=== PATIENT | female | born 1995 | race Caucasian/White ===

== ENCOUNTER 2019-04-11 07:28 | Day surgery (SDC) | payer BC ==
[2019-04-11] MEDS ORDERED: LIDOCAINE 1% W/EPI 1:100,000 MDV 20 ML VIAL ONE (07:31)
[2019-04-11] MEDS ORDERED: Ringers Lactate 1,000 ML IV ONE (07:45)
[2019-04-11] MEDS ORDERED: CEFAZOLIN/SWI 2gm 0 GM/0 ML SYR ONE (07:46)
[2019-04-11] MEDS ORDERED: MIDAZOLAM HCL 2 MG/2 ML INJ ONE (08:06)
[2019-04-11 08:17] VITALS: BP 107/68; TEMP 97.7; O2SAT 99
[2019-04-11 08:21] LABS: Specific Gravity 1.025 (1.005-1.030)
[2019-04-11] MEDS ORDERED: LIDOCAINE 2% MPF 5 ML VIAL ONE (08:22)
[2019-04-11] MEDS ORDERED: PROPOFOL 200 MG/20 ML VIAL IV ONE (08:22)
[2019-04-11] MEDS ORDERED: FENTANYL CITR 100 MCG/2 ML ONE (08:22)
[2019-04-11] MEDS ORDERED: ONDANSETRON 4 MG/2 ML VIAL ONE (08:24)
--- NOTE | 2019-04-11 21:26 | OP ---
Surgeon: Teresa Mao MD Preprocedure Diagnoses: 1.Patient here for left Bartholin gland I and D and marsupialization. Patient found to be , so this procedure not performed. 2.Positive test, first trimester . 3.Nexplanon in place, needs removal. Postprocedure Diagnoses: 1.Patient here for left Bartholin gland I and D and marsupialization. Patient found to be , so this procedure not performed. 2.Positive test, first trimester . 3.Nexplanon in place, needs removal. 4.Nexplanon removal. Procedure Performed: At the bedside, 1% lidocaine mixed with 1:100, 000 epinephrine, 3 cc was inject ed at the site of the Nexplanon underneath. The implant was present in the medial left arm, prepped with ChloraPrep was done at the bedside drape. Once a 5 mm transverse cut at the distal end of the i mplant with an 11 blade, the tip of the implant was well palpated and the implant was teased out and excised with the tip of the scalpel. Once the implant was visualized, it was grasped with hemostat a nd removed. Steri-Strips were placed after hemostasis was secured with pressure. Bandage with a 4 x 4 and a large Band-Aid was done. Patient was given instructions on local care of the incision. Estimated Blood Loss: Minimal. Complications: None. Condition: Stable. She will be discharged home today. From her Bartholin gland abscess same point, patient was examined at the bedside. It was much smalle r, may be about a centimeter. This is not amenable to drainage and therefore plan was to continue he r antibiotics and follow up with an plate take out worker in the director long term care. The [facility] a [facility] She had no further followup. She was the old danielle ent, however, recent patient for us in the office, showed up for the Bartholin gland abscess problem later on the following day. She had a Nexplanon placed in her arm. At the time of the Nexplanon zee cement, her urine test was negative. In the office, it was confirmed to be negative and pa stuart was just on her period at this time. After the implant placement, she came back a week later f or followup on her Bartholin gland, which was being treated with antibiotics. This had increased in size and therefore plan was to drain it as this is the second episode of the same gland swelling that was drained at bedside few years ago, so she was consented for the marsupialization and brought here , but today due to the above problem and due to the fact that this has gotten too much smaller size, it was not amenable to marsupialization. She is being discharged home today. She will follow up shaniqua choi in my office for an HCG level in 2 days and we will see if the level is going to double, consist ent with a normal than she will be. Her care will be transferred to an plate take out worker. ARGELIA Voice ID: [id number] Report ID: [id number]
== END 2019-04-11 12:00 | disposition home or self-care (01) ==
LOC: OR 07:28
PROVIDERS: ATTEND Obstetrics & Gynecology
PROC: 0JPV0HZ Removal of Contraceptive Device from Upper Extremity Subcutaneous Tissue and Fascia, Open Approach (ICD-10-PCS; principal; 2019-04-11)
DX: N75.0 Cyst of Bartholin's gland (principal); Z30.46 Encounter for surveillance of implantable subdermal contraceptive; Z33.1 Pregnant state, incidental; Z53.8 Procedure and treatment not carried out for other reasons; F17.200 Nicotine dependence, unspecified, uncomplicated; F41.9 Anxiety disorder, unspecified; F31.9 Bipolar disorder, unspecified
CPT/HCPCS: 36415; 81025; 84702; 84703; J0690; J2250; J2405; J2704; J3010

== ENCOUNTER 2020-03-13 18:24 | Emergency (ER) | payer BC ==
--- OUTSIDE RECORDS SUMMARY | 2020-03-13 18:26 | XMS REPORT | Continuity of Care Document ---
:1995 Author Organization [facility] t Address [address] [place] [address] Care Team Providers Name Role Phone DR Angus SANTIAGO Attending Clinician Unavailable DR Angus SANTIAGO Admitting Clinician Unavailable Problems This patient has no known problems. Allergies, Adverse Reactions, Alerts This patient has no known allergies or adverse reactions. Medications This patient has no known medications. Procedures This patient has no known procedures. Encounters Start End Encounter Admission Attending Care Care Encounter Source Date/Time Date/Time Type Type Clinicians Facility Department ID 2019-03-11 2019-03-11 Emergency [facility] [id number] 16:01:00 18:50:00 [facility] Results Test Description Test Time Test Comments Results Result Comments Source SERUM MONOCLONAL 2019-03-11 18:18:00 Test Item Value Reference Range Interpretation Comme nts PREG SRM (test code = PGS) NEGATIVE NEGATIVE CT HEAD W/O [id number] 17:36:29LOCATION: H43 EXAM: CT HEAD WO CONTRAST, CT facial bones without contrastHISTORY: Status post assaultTECHNIQUE: Axial imaging the brain from skull base to the vertex without theadministration of intravenous contrast. Thin section axial imaging through thefacial bones without intravenous contrast administration. Sagittal and coronalreconstruction. CT scan performed using appropriate/available doseoptimization/reduction techniques. DLP 1630 mGy*cmCOMPARISON: NoneFINDINGS:CT brain:A prominent right posterior occipital scalp hematoma is present at the vertex.There is no evidence of an acute intracranial hemorrhage or extra-axialcollection. The ventricles are midline in position and normal in size.The basilar cisternsare patent and symmetric.There is no confluent low-density to indicate an acute territorial infarct. Thedensity of the major dural sinuses is within normal limits.The orbits and their contents are unremarkable. The calvarium is intact. CT facial bones: There is partial opacification of the bilateral maxillary sinus including thepresence of air-fluid levels consistent with acute sinus disease. The paranasalsinuses and the mastoid air cells are otherwise clear.No acute fracture is identified. The maxillary sinus sterling are intact. Theorbit sterling and contents intact. The mandible isintact. The temporomandibularjoint is preserved bilaterally. The airway is preserved. The retropharyngeal soft tissues are within normallimits.Prominent, symmetric lymph nodes are noted in the bilateral neck, measuring upto 12 x 14 mm in the bilateral level 2 station.Parotid and submandibular glands are symmetric and unremarkable in appearance. No evidence of acute hemorrhage or abnormal mass effect in the visualizedportion of the brain. IMPRESSION:Prominent scalp hematoma at the right posterior vertex.No evidence of acute intracranial pathology.Partial opacification of the bilateral maxillary sinus consistent with acutesinus disease. No evidence of an acute facial bone fracture.Prominent, symmetric lymph nodes in the bilateral neck. Correlate for an acuteinfectious or inflammatory process.CT FACIAL W/O CONTRAST 2019-03-11 17:36:29LOCATION: H43 EXAM: CT HEAD WO CONTRAST, CT facial bones without contrastHISTORY: Status post assaultTECHNIQUE: Axial imaging the brain from skull base to the vertex without theadministration of intravenous contrast. Thin section axial imaging through thefacial bones without intravenous contrast administration. Sagittal and coronalreconstruction. CT scan performed using appropriate/available doseoptimization/reduction techniques. DLP 1630 mGy*cmCOMPARISON: NoneFINDINGS:CT brain:A prominent right posterior occipital scalp hematoma is present at the vertex.There is no evidence of an acute intracranial hemorrhage or extra-axialcollection. The ventricles are midline in position and normal in size.The basilar cisternsare patent and symmetric.There is no confluent low-density to indicate an acute territorial infarct. Thedensity of the major dural sinuses is within normal limits.The orbits and their contents are unremarkable. The calvarium is intact. CT facial bones: There is partial opacification of the bilateral maxillary sinus including thepresence of air-fluid levels consistent with acute sinus disease. The paranasalsinuses and the mastoid air cells are otherwise clear.No acute fracture is identified. The maxillary sinus sterling are intact. Theorbit sterling and contents intact. The mandible isintact. The temporomandibularjoint is preserved bilaterally. The airway is preserved. The retropharyngeal soft tissues are within normallimits.Prominent, symmetric lymph nodes are noted in the bilateral neck, measuring upto 12 x 14 mm in the bilateral level 2 station.Parotid and submandibular glands are symmetric and unremarkable in appearance. No evidence of acute hemorrhage or abnormal mass effect in the visualizedportion of the brain. IMPRESSION:Prominent scalp hematoma at the right posterior vertex.No evidence of acute intracranial pathology.Partial opacification of the bilateral maxillary sinus consistent with acutesinus disease. No evidence of an acute facial bone fracture.Prominent, symmetric lymph nodes in the bilateral neck. Correlate for an acuteinfectious or inflammatory process.XR RIBS LEFT UNIL 3VWS W/PA [id number] 17:28:27EXAM: Right rib series, 3 views; and chest and left rib series, 4 viewsDictation location: A1 INDICATION: Rib painCOMPARISON: None.DISCUSSION:Right ribs: Frontal and oblique views of the right ribs are submitted. Noconsolidation, pleural effusion, or pneumothorax is seen. No displaced ribfracture or focal rib lesion is seen.Chest/left ribs: A frontal view of the chest and multiple views of the leftribs are submitted. No consolidation, pleural effusion, or pneumothorax isseen. The cardiomediastinal silhouette is within normal limits. No displacedrib fracture or focal rib lesion is seen.IMPRESSION: No evidence of rib fracture or other acute abnormality.XR RIBS RIGHT UNIL 3VW W/PA [id number] 17:28:27EXAM: Right rib series, 3 views; and chest and left rib series, 4 viewsDictation location: A1 INDICATION: Rib painCOMPARISON: None.DISCUSSION:Right ribs: Frontal and oblique views of the right ribs aresubmitted. Noconsolidation, pleural effusion, or pneumothorax is seen. No displaced ribfracture or focal rib lesion is seen.Chest/left ribs: A frontal view of the chest and multiple views of the leftribs are submitted. No consolidation, pleural effusion, or pneumothorax isseen. The cardiomediastinal silhouette is within normal limits. No displacedrib fracture or focal rib lesion is seen.
[2020-03-13] MEDS ORDERED: LIDOCAINE 1% MPF 5 ML VIAL ONE (20:09)
--- NOTE | 2020-03-13 20:35 | ER ---
Nurse's Notes [facility] Name: Caridad Phillip Age: 24 yrs Sex: Female : 1995 Arrival Date: 03/13/2020 Time: 18:27 Bed 20 Private MD: Matt Castrejon E Diagnosis: Abscess of Bartholin's gland Presentation: 03/13 18:30 Chief complaint: Patient states: Here for Bartholin's Cyst. I have this every 3 years. ca1 Took abx but it still there. Reports pain at genital area, worse with walking. Coronavirus screen: Patient denies a cough. Patient denies shortness of breath or difficulty breathing. Patient denies measured and/or subjective temperature greater than 100.4F prior to today's visit. Patient denies travel on a cruise ship or to a country the [facility] currently lists as an affected area. Patient denies contact with known and/or suspected case of COVID-19. Patient was placed back in the lobby due to no available rooms at this time. Patient was instructed to always wear their mask and to isolate themselves as much as possible from others in the lobby. Ebola Screen: Patient negative for fever greater than or equal to 101.5 degrees Fahrenheit, and additional compatible Ebola Virus Disease symptoms Patient denies exposure to infectious person. Patient denies travel to an Ebola-affected area in the 21 days before illness onset. No symptoms or risks identified at this time. Initial Sepsis Screen: Does the patient meet any 2 criteria? No. Patient's initial sepsis screen is negative. Does the patient have a suspected source of infection? No. Patient's initial sepsis screen is negative. Risk Assessment: Do you want to hurt yourself or someone else? Patient reports no desire to harm self or others. Onset of symptoms was March 13, 2020. 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 - Social history:: Smoking status: Patient reports the use of cigarette tobacco products, smokes one-half pack cigarettes per day. Screenin:06 Abuse screen: Denies threats or abuse. Nutritional screening: No deficits noted. ea Tuberculosis screening: No symptoms or risk factors identified. Fall Risk None identified. Assessment: 19:04 General: Appears in no apparent distress. Behavior is appropriate for age. Pain: ea Complains of pain in groin. Neuro: Level of Consciousness is awake, alert, obeys commands, Oriented to person, place, time. Respiratory: Airway is patent Respiratory effort is even, unlabored, Respiratory pattern is regular, symmetrical. : Swelling noted on labia. 21:02 Reassessment: Patient states feeling better. mt2 Vital Signs: 18:30 BP 128 / 65; Pulse 89; Resp 17 S; Temp 98(TE); Pulse Ox 100% on R/A; Weight 68.04 kg ca1 (R); Height 5 ft. 5 in. (165.10 cm) (R); 21:02 BP 129 / 63; Pulse 79; Resp 16; Pulse Ox 99% ; Pain 0/10; mt2 21:04 Pain 0/10; mt2 21:04 Pain 0/10; mt2 21:04 Pain 0/10; mt2 21:05 Pain 0/10; mt2 18:30 Body Mass Index 24.96 (68.04 kg, 165.10 cm) ca1 ED Course: 18:27 Patient arrived in ED. ag5 18:30 Matt Castrejon MD is Private Physician. ag5 18:33 Triage completed. ca1 18:34 Arm band placed on right wrist. ca1 18:56 Mulugeta Johnston PA is PHCP. jr8 18:56 Butch Perez MD is Attending Physician. jr8 19:04 Ayla Yañez, DANILO is Primary Nurse. ea 19:06 Patient has correct armband on for positive identification. Bed in low position. Call ea light in reach. Side rails up X 1. 20:25 Matt Castrejon MD is Referral Physician. jr8 21:01 No apparent distress. mt2 21:01 Assist provider with I \T\ D: of an abscess on perineal Performed by Mulugeta ZHAO. mt2 Patient did not have IV access during this emergency room visit. Administered Medications: 20:04 Drug: Lidocaine (1 %) 5 mg Route: Infiltration; mt2 21:04 Follow up: Pain 0/10 Adult mt2 20:36 Drug: morphine 4 mg Route: IM; Site: right deltoid; mt2 21:04 Follow up: Pain 0/10 Adult mt2 21:05 Follow up: Pain 0/10 Adult mt2 20:37 Drug: Zofran (Ondansetron) 4 mg Route: PO; mt2 21:04 Follow up: Pain 0/10 Adult mt2 Outcome: 20:34 Discharge ordered by MD. philip 21:01 Discharged to home ambulatory. mt2 21:01 Condition: good 21:01 Discharge instructions given to patient, Instructed on discharge instructions, follow up and referral plans. medication usage, Demonstrated understanding of instructions, follow-up care, medications, Prescriptions given X 1. 21:05 Patient left the ED. mt2 Signatures: Mulugeta Johnston PA PA jrAyla Dimas RN RN ea Acob, Cheryl, RN RN ca1 [place], Ajare [facility] Selena Harrell RN RN mt2
--- NOTE | 2020-03-13 20:35 | EDPHYS ---
Physician Documentation [facility] Name: Caridad Phillip Age: 24 yrs Sex: Female : 1995 Arrival Date: 03/13/2020 Time: 18:27 Bed 20 Private MD: Matt Castrejon E ED Physician Butch Perez HPI: 03/13 20:42 This 24 yrs old Female presents to ER via Ambulatory with complaints of jr8 Bartholin's Cyst. 20:42 Onset: The symptoms/episode began/occurred gradually, 1 week(s) ago, and became worse. jr8 Modifying factors: The symptoms are alleviated by nothing, the symptoms are aggravated by movement. Associated signs and symptoms: The patient has no apparent associated signs or symptoms. Severity of symptoms: At their worst the symptoms were moderate, in the emergency department the symptoms are unchanged. The patient has experienced similar episodes in the past, a few times. The patient has been recently seen by a physician:. Started on Abx and almost finished them. Has improved pain but still swollen and not going away. Has had this several times in past. All requiring I\T\D. 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 - Social history:: Smoking status: Patient reports the use of cigarette tobacco products, smokes one-half pack cigarettes per day. ROS: 20:42 Eyes: Negative for injury, pain, redness, and discharge, ENT: Negative for injury, jr8 pain, and discharge, Neck: Negative for injury, pain, and swelling, Cardiovascular: Negative for chest pain, palpitations, and edema, Respiratory: Negative for shortness of breath, cough, wheezing, and pleuritic chest pain, Abdomen/GI: Negative for abdominal pain, nausea, vomiting, diarrhea, and constipation, Back: Negative for injury and pain, MS/Extremity: Negative for injury and deformity, Skin: Negative for injury, rash, and discoloration, Neuro: Negative for headache, weakness, numbness, tingling, and seizure. Exam: 20:42 Cardiovascular: Regular rate and rhythm with a normal S1 and S2. No gallops, murmurs, jr8 or rubs. Normal PMI, no JVD. No pulse deficits. Respiratory: Lungs have equal breath sounds bilaterally, clear to auscultation and percussion. No rales, rhonchi or wheezes noted. No increased work of breathing, no retractions or nasal flaring. Skin: Warm, dry with normal turgor. Normal color with no rashes, no lesions, and no evidence of cellulitis. MS/ Extremity: Pulses equal, no cyanosis. Neurovascular intact. Full, normal range of motion. Neuro: Awake and alert, GCS 15, oriented to person, place, time, and situation. Cranial nerves II-XII grossly intact. Motor strength 5/5 in all extremities. Sensory grossly intact. Cerebellar exam normal. Normal gait. 20:42 : Pelvic Exam: External exam: Bartholin's cyst present, erythema is noted, the nurse was present for the exam. Vital Signs: 18:30 BP 128 / 65; Pulse 89; Resp 17 S; Temp 98(TE); Pulse Ox 100% on R/A; Weight 68.04 kg ca1 (R); Height 5 ft. 5 in. (165.10 cm) (R); 21:02 BP 129 / 63; Pulse 79; Resp 16; Pulse Ox 99% ; Pain 0/10; mt2 21:04 Pain 0/10; mt2 21:04 Pain 0/10; mt2 21:04 Pain 0/10; mt2 21:05 Pain 0/10; mt2 18:30 Body Mass Index 24.96 (68.04 kg, 165.10 cm) ca1 Procedures: 20:23 I \T\ D: Incision and drainage was performed for an abscess of the left Bartholin's jr8 gland. Prepped with Betadine, Anesthetized with 5 ml's 1% Lidocaine. Incised with #11 blade. Drained moderate amount purulent fluid. serosanguinous fluid. bloody fluid. Loculations removed. Abscess cavity explored. Packed with word catheter . the patient tolerated the procedure well. MDM: 18:57 Patient medically screened. jr8 20:23 Data reviewed: vital signs, nurses notes, and as a result, I will discharge patient. jr8 Data interpreted: Pulse oximetry: on room air is 100 %. Interpretation: normal. Counseling: I had a detailed discussion with the patient and/or guardian regarding: the historical points, exam findings, and any diagnostic results supporting the discharge/admit diagnosis, the need for outpatient follow up, an OB/Gyne specialist, to return to the emergency department if symptoms worsen or persist or if there are any questions or concerns that arise at home. 03/13 19:43 Order name: I\T\D Setup; Complete Time: 19:59 jr8 03/13 19:43 Order name: Misc. Order: word catheter; Complete Time: 20:04 jr8 Administered Medications: 20:04 Drug: Lidocaine (1 %) 5 mg Route: Infiltration; mt2 21:04 Follow up: Pain 0/10 Adult mt2 20:36 Drug: morphine 4 mg Route: IM; Site: right deltoid; mt2 21:04 Follow up: Pain 0/10 Adult mt2 21:05 Follow up: Pain 0/10 Adult mt2 20:37 Drug: Zofran (Ondansetron) 4 mg Route: PO; mt2 21:04 Follow up: Pain 0/10 Adult mt2 Disposition: 03/13/20 20:34 Discharged to Home. Impression: Abscess of Bartholin's gland. - Condition is Stable. - Discharge Instructions: Bartholin Cyst or Abscess, Incision and Drainage. - Prescriptions for Tylenol- Codeine #3 300-30 mg Oral Tablet - take 2 tablets by ORAL route every 6 hours As needed; 20 tablet. - Medication Reconciliation Form, Thank You Letter, Antibiotic Education, Prescription Opioid Use form. - Follow up: Matt Castrejon MD; When: 1 week; Reason: Wound Recheck, Recheck today's complaints, Continuance of care, Re-evaluation by your physician. - Problem is new. - Symptoms have improved. Addendum: 03/17/2020 07:21 Co-signature as Attending Physician, Butch Perze MD. r n Signatures: Butch Perez MD MD rn Roszak, Josh, PA PA jr8 Lila Whipple RN RN ca1 Selena Harrell RN RN mt2 Corrections: (The following items were deleted from the chart) 03/13 21:05 20:34 03/13/2020 20:34 Discharged to Home. Impression: Abscess of Bartholin's gland. mt2 Condition is Stable. Forms are Medication Reconciliation Form, Thank You Letter, Antibiotic Education, Prescription Opioid Use. Follow up: Matt Castrejon; When: 1 week; Reason: Wound Recheck, Recheck today's complaints, Continuance of care, Re-evaluation by your physician. Problem is new. Symptoms have improved. jr8
[2020-03-13] MEDS ORDERED: ONDANSETRON 4 MG (ODT) TAB ONE (20:42)
[2020-03-13] MEDS ORDERED: MORPHINE 4 MG/ML SYR ONE (20:42)
== END 2020-03-13 21:05 | disposition home or self-care (01) ==
LOC: ER 18:24
PROC: 0U9L0ZZ Drainage of Vestibular Gland, Open Approach (ICD-10-PCS; principal; 2020-03-13)
DX: N75.0 Cyst of Bartholin's gland (principal); F41.9 Anxiety disorder, unspecified; F17.210 Nicotine dependence, cigarettes, uncomplicated
CPT/HCPCS: 96372; 99283

== ENCOUNTER 2020-04-03 00:45 | Emergency (ER) | payer BC ==
--- OUTSIDE RECORDS SUMMARY | 2020-04-03 00:47 | XMS REPORT | Continuity of Care Document ---
:1995 Author Organization [facility] t Address [address] [place] [address] Care Team Providers Name Role Phone DR [...] Department ID 2019-03-11 2019-03-11 Emergency E [facility]ACK [facility] [id number] 16:01:00 18:50:00 [facility] Results Test Description Test Time Test Comments Results Result Comments Source SERUM MONOCLONAL 2019-03-11 18:18:00 Test Item Value Reference Range Interpretation Comme nts PREG SRM (test code = PGS) NEGATIVE NEGATIVE CT HEAD W/O [id number] 17:36:29LOCATION: H43 EXAM: CT HEAD WO CONTRAST, [...] inflammatory process.XR RIBS LEFT UNIL 3VWS W/PA [id number] 17:28:27EXAM: Right rib series, 3 views; and [...] acute abnormality.XR RIBS RIGHT UNIL 3VW W/PA [id number] 17:28:27EXAM: Right rib series, 3 views; and [...]
[2020-04-03] MEDS ORDERED: LIDOCAINE 1% 20 ML MDV ONE (02:07)
[2020-04-03] MEDS ORDERED: BUPIVACAINE 0.5% PF 10 ML VIAL ONE (02:07)
[2020-04-03] MEDS ORDERED: FENTANYL CITR 100 MCG/2 ML ONE (02:18)
--- NOTE | 2020-04-03 03:02 | EDPHYS ---
Physician Documentation [facility] Name: Caridad Phillip Age: 24 yrs Sex: Female : 1995 Arrival Date: 04/03/2020 Time: 00:49 Bed 7 Private MD: Matt Castrejon E ED Physician Efrain Villareal HPI: 04/03 02:50 This 24 yrs old Female presents to ER via Ambulatory with complaints of cp Bartholin's Cyst. 02:50 The patient presents with possible Bartholin cyst. cp 02:50 Onset: The symptoms/episode began/occurred last month. Associated signs and symptoms: cp Pertinent negatives: dysuria, fever. Patient reports having I\T\D of Bartholin cyst last month in ED, but the catheter fell out the next day after the procedure. Patient reports finishing course of doxycycline. 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 - Social history:: Smoking status: Patient reports the use of cigarette tobacco products, smokes one-half pack cigarettes per day. ROS: 02:55 Constitutional: Negative for body aches, chills, fever, poor PO intake. cp 02:55 Respiratory: Negative for cough, shortness of breath, wheezing. cp 02:55 Abdomen/GI: Negative for abdominal pain, nausea, vomiting, and diarrhea. 02:55 : Positive for genital swelling and pain, Negative for urinary symptoms, vaginal bleeding, vaginal discharge. 02:55 Skin: Negative for rash. 02:55 All other systems are negative. Exam: 02:58 Constitutional: The patient appears in no acute distress, alert, awake, non-toxic, well cp developed, well nourished. 02:58 Abdomen/GI: Inspection: abdomen appears normal, Palpation: abdomen is soft and cp non-tender, in all quadrants. 02:58 : Pelvic Exam: External exam: no appreciated Bartholin's cyst, no lesions, mild swelling and erythema of left labia majora, scant bloody drainage from previous incision of left labia majora, no purulent drainage expressed. Vital Signs: 01:43 BP 109 / 80; Pulse 82; Resp 18; Temp 98.1(O); Pulse Ox 99% on R/A; Weight 68.04 kg (R); lp1 Height 5 ft. 5 in. (165.10 cm); Pain 10/10; 01:43 Body Mass Index 24.96 (68.04 kg, 165.10 cm) lp1 MDM: 01:47 Patient medically screened. cp 03:00 Differential diagnosis: pelvic inflammatory disease, urinary tract infection, abscess, cp cellulitis. 03:01 Data reviewed: vital signs, nurses notes, and as a result, I will discharge patient. cp 03:01 Counseling: I had a detailed discussion with the patient and/or guardian regarding: the cp historical points, exam findings, and any diagnostic results supporting the discharge/admit diagnosis, the need for outpatient follow up, an OB/Gyne specialist, to return to the emergency department if symptoms worsen or persist or if there are any questions or concerns that arise at home. Response to treatment: the patient's symptoms have mildly improved after treatment, and as a result, I will discharge patient. 08 01:45 Order name: Pelvic Exam Setup; Complete Time: 02:04 cp 08 01:58 Order name: IV; Complete Time: 02:16 cp Administered Medications: 02:16 Drug: fentaNYL (PF) 25 mcg {Note: RASS 0.} Route: IVP; Site: right antecubital; lp1 03:00 Follow up: Response: No adverse reaction lp1 Disposition: 03:15 Chart complete. cp 04:29 Co-signature as Attending Physician, Efrain Villareal MD. mh7 Disposition: 04/03/20 03:02 Discharged to Home. Impression: Cellulitis and acute lymphangitis of other sites - left labia. - Condition is Stable. - Discharge Instructions: Cellulitis, Adult. - Prescriptions for Clindamycin HCl 300 mg Oral Capsule - take 1 capsule by ORAL route every 6 hours for 10 days; 40 capsule. Tylenol- Codeine #3 300-30 mg Oral Tablet - take 2 tablets by ORAL route every 8 hours As needed; 20 tablet. - Medication Reconciliation Form, Thank You Letter, Antibiotic Education, Prescription Opioid Use form. - Follow up: Teresa Mao MD; When: 2 - 3 days; Reason: Worsening of condition. - Problem is an ongoing problem. - Symptoms have improved. Signatures: Yue Stout RN RN lp1 Elkin Wise PA PA cp Holmes, Maurice, MD MD mh7 Corrections: (The following items were deleted from the chart) 03:13 03:02 04/03/2020 03:02 Discharged to Home. Impression: Cellulitis and acute lp1 lymphangitis of other sites - left labia. Condition is Stable. Forms are Medication Reconciliation Form, Thank You Letter, Antibiotic Education, Prescription Opioid Use. Follow up: Teresa Mao; When: 2 - 3 days; Reason: Worsening of condition. Problem is an ongoing problem. Symptoms have improved. cp
--- NOTE | 2020-04-03 03:02 | ER ---
Nurse's Notes [facility] Name: Caridad Phillip Age: 24 yrs Sex: Female : 1995 Arrival Date: 04/03/2020 Time: 00:49 Bed 7 Private MD: Matt Castrejon E Diagnosis: Cellulitis and acute lymphangitis of other sites-left labia Presentation: 04/03 01:43 Chief complaint: Patient states: Here a couple weeks ago for Bartholin's cyst to left lp1 side; states catheter came out and would like to see if provider can squeeze out drainage to site for relief. Coronavirus screen: Client denies travel out of the [place] in the last 14 days. At this time, the client does not indicate any symptoms associated with coronavirus-19. Ebola Screen: No symptoms or risks identified at this time. Initial Sepsis Screen: Does the patient meet any 2 criteria? No. Patient's initial sepsis screen is negative. Does the patient have a suspected source of infection? No. Patient's initial sepsis screen is negative. Risk Assessment: Do you want to hurt yourself or someone else? Patient reports no desire to harm self or others. Onset of symptoms was April 03, 2020. 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 - Social history:: Smoking status: Patient reports the use of cigarette tobacco products, smokes one-half pack cigarettes per day. Screenin:45 Abuse screen: Denies threats or abuse. Denies injuries from another. Nutritional lp1 screening: No deficits noted. Tuberculosis screening: No symptoms or risk factors identified. Fall Risk None identified. Assessment: 02:15 General: Appears in no apparent distress. Behavior is calm, cooperative, appropriate lp1 for age. Pain: Complains of pain in left labia majora and left labia minora Pain currently is 10 out of 10 on a pain scale. Neuro: No deficits noted. Cardiovascular: No deficits noted. Respiratory: No deficits noted. GI: No deficits noted. : No signs and/or symptoms were reported regarding the genitourinary system. EENT: No signs and/or symptoms were reported regarding the EENT system. Derm: Abscess located on left labia majora and left labia minora Reports pain. Musculoskeletal: No deficits noted. Vital Signs: 01:43 BP 109 / 80; Pulse 82; Resp 18; Temp 98.1(O); Pulse Ox 99% on R/A; Weight 68.04 kg (R); lp1 Height 5 ft. 5 in. (165.10 cm); Pain 10/10; 01:43 Body Mass Index 24.96 (68.04 kg, 165.10 cm) lp1 ED Course: 00:49 Patient arrived in ED. es 00:49 Matt Castrejon MD is Private Physician. es 01:16 Patient's name was called from ER [facility]. No response. bb 01:43 Yue Stout, RN is Primary Nurse. lp1 01:45 Triage completed. lp1 01:45 Elkin Wise PA is PHCP. cp 01:45 Efrain Villareal MD is Attending Physician. cp 01:46 Patient has correct armband on for positive identification. lp1 01:46 Arm band placed on. lp1 02:17 Inserted saline lock: 22 gauge in right antecubital area, using aseptic technique. lp1 02:53 Assist provider with pelvic exam: Set up pelvic tray. Performed by Elkin ZHAO. lp1 03:00 Teresa Mao MD is Referral Physician. cp 03:13 IV discontinued, No redness/swelling at site. Pressure dressing applied. lp1 Administered Medications: 02:16 Drug: fentaNYL (PF) 25 mcg {Note: RASS 0.} Route: IVP; Site: right antecubital; lp1 03:00 Follow up: Response: No adverse reaction lp1 Outcome: 03:02 Discharge ordered by . cp 03:13 Discharged to home ambulatory. lp1 03:13 Condition: good 03:13 Discharge instructions given to patient, Instructed on discharge instructions, follow up and referral plans. wound care, Demonstrated understanding of instructions, follow-up care, medications, Prescriptions given X 2. 03:13 Patient left the ED. lp1 Signatures: Ashely Roche Brenda, RN RN bb Yue Stout RN RN lp1 Elkin Wise PA PA cp
[2020-04-03 03:21] VITALS: BP 109/80; TEMP 98.1; O2SAT 99
== END 2020-04-03 03:13 | disposition home or self-care (01) ==
LOC: ER 00:45
DX: N76.2 Acute vulvitis (principal); F17.210 Nicotine dependence, cigarettes, uncomplicated
CPT/HCPCS: 96374; 99284; J3010

== ENCOUNTER 2020-07-07 19:37 | Emergency (ER) | payer BC ==
--- OUTSIDE RECORDS SUMMARY | 2020-07-07 19:38 | XMS REPORT | Continuity of Care Document ---
:1995 Author Organization [facility] t Address [address] [place] [address] Care Team Providers Name Role Phone DR [...] ID 2019-03-11 2019-03-11 Emergency E JACK Bola [facility] [id number] 16:01:00 18:50:00 [facility] Results Test Description Test Time Test Comments Results Result Comments Source SERUM MONOCLONAL 2019-03-11 18:18:00 Test Item Value Reference Range Interpretation Comme nts PREG SRM (test code = PGS) NEGATIVE NEGATIVE CT HEAD W/O [id number] 17:36:29LOCATION: H43 EXAM: CT HEAD WO CONTRAST, [...] inflammatory process.XR RIBS LEFT UNIL 3VWS W/PA [id number] 17:28:27EXAM: Right rib series, 3 views; and [...] acute abnormality.XR RIBS RIGHT UNIL 3VW W/PA [id number] 17:28:27EXAM: Right rib series, 3 views; and [...]
[2020-07-07] MEDS ORDERED: MORPHINE 4 MG/ML SYR ONE (21:03)
[2020-07-07] MEDS ORDERED: ONDANSETRON 4 MG (ODT) TAB ONE (21:04)
[2020-07-07] MEDS ORDERED: HYDROCORTISONE ACETATE 25MG SUPP PR ONE (21:06)
--- NOTE | 2020-07-07 21:07 | ER ---
Nurse's Notes [facility] Name: Caridad Phillip Age: 25 yrs Sex: Female : 1995 Arrival Date: 07/07/2020 Time: 19:42 Bed 16 Private MD: Diagnosis: Painful external hemorrhoids Presentation: 07/07 19:46 Chief complaint: Patient states: I have hemorrhoids for a bout a week now, it's pretty ca1 big and I am in a lot of pain. It bleeds here and there. But I am not even sure if it is a hemorrhoid cause I am also prone to a Bartholin's cyst, I get it like every 3 years. But it's not leaking pus nor foul-smelling. Denies fever. Coronavirus screen: Client denies travel out of the [place] in the last 14 days. At this time, the client does not indicate any symptoms associated with coronavirus-19. Ebola Screen: Patient negative for fever greater than or equal to 101.5 degrees Fahrenheit, and additional compatible Ebola Virus Disease symptoms Patient denies exposure to infectious person. Patient denies travel to an Ebola-affected area in the 21 days before illness onset. No symptoms or risks identified at this time. Initial Sepsis Screen: Does the patient meet any 2 criteria? No. Patient's initial sepsis screen is negative. Does the patient have a suspected source of infection? No. Patient's initial sepsis screen is negative. Risk Assessment: Do you want to hurt yourself or someone else? Patient reports no desire to harm self or others. Onset of symptoms was July 07, 2020. 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 - Social history:: Smoking status: Patient reports the use of cigarette tobacco products, denies chronic smoking, but will smoke occasionally. Screenin:21 Abuse screen: Denies threats or abuse. Nutritional screening: No deficits noted. jd3 Tuberculosis screening: No symptoms or risk factors identified. Fall Risk Ambulatory Aid- None/Bed Rest/Nurse Assist (0 pts). Gait- Normal/Bed Rest/Wheelchair (0 pts) Mental Status- Oriented to own ability (0 pts). Total Fisher Fall Scale indicates No Risk (0-24 pts). Assessment: 21:20 General: Appears in no apparent distress. uncomfortable, Behavior is calm, cooperative, jd3 appropriate for age. Pain: Complains of pain in buttocks Quality of pain is described as aching. Neuro: Level of Consciousness is awake, alert, obeys commands, Oriented to person, place, time, situation. Cardiovascular: Denies Capillary refill < 3 seconds Patient's skin is warm and dry. Respiratory: Airway is patent Respiratory effort is even, unlabored, Respiratory pattern is regular, symmetrical. GI: No signs and/or symptoms were reported involving the gastrointestinal system. : No signs and/or symptoms were reported regarding the genitourinary system. EENT: No signs and/or symptoms were reported regarding the EENT system. Derm: Skin is intact, Skin is dry, Skin is normal, Skin temperature is warm. Musculoskeletal: Circulation, motion, and sensation intact. Range of motion: intact in all extremities. Vital Signs: 19:46 BP 127 / 79; Pulse 58; Resp 16 S; Temp 97.4(TE); Pulse Ox 100% on R/A; Weight 56.7 kg ca1 (R); Height 5 ft. 5 in. (165.10 cm) (R); Pain 10/10; 19:46 Body Mass Index 20.80 (56.70 kg, 165.10 cm) ca1 ED Course: 19:42 Patient arrived in ED. bp1 19:49 Triage completed. ca1 19:49 Arm band placed on right wrist. ca1 20:38 Enrique Allison MD is Attending Physician. pkl 20:48 Harrison Rivers RN is Primary Nurse. jd3 21:05 Zac Moreland MD is Referral Physician. pkl 21:21 Patient has correct armband on for positive identification. Bed in low position. Call jd3 light in reach. Side rails up X 1. Adult w/ patient. Pulse ox on. NIBP on. 21:21 No provider procedures requiring assistance completed. Patient did not have IV access jd3 during this emergency room visit. Administered Medications: 20:56 Drug: Zofran (Ondansetron) 4 mg Route: PO; jd3 21:23 Follow up: Response: No adverse reaction jd3 20:57 Not Given (Other Intervention Used): morphine 4 mg IVP once; RASS on ADMIN: Combtv4, jd3 Very Agttd3, Agttd2, Rstlss1, AlertClm0, Drwsy-1, Lt Sdtn-2, Mod Sdtn-3, Dp Sdtn-4, UnArsble-5 20:57 Drug: morphine 4 mg Route: IM; Site: left deltoid; jd3 21:23 Follow up: Response: No adverse reaction; RASS: Alert and Calm (0) jd3 21:22 Drug: Anusol-HC 25 mg 25 mg Route: RI; jd3 21:22 Follow up: Response: Medication administered at discharge. jd3 Outcome: 21:06 Discharge ordered by . everett 21:22 Discharged to home ambulatory, with family. jd3 21:22 Condition: stable 21:22 Discharge instructions given to patient, family, Instructed on discharge instructions, follow up and referral plans. medication usage, Demonstrated understanding of instructions, follow-up care, medications, Prescriptions given X 2. 21:23 Patient left the ED. jd3 Signatures: Enrique Allison MD MD pkl Davies, Jonathon RN RN jLila Ellsworth RN RN ca1 [place]ia[place], Brittany bp1 Corrections: (The following items were deleted from the chart) 21:23 21:23 Response: No adverse reaction jd3 jd3
--- NOTE | 2020-07-07 21:07 | EDPHYS ---
Physician Documentation [facility] Name: Caridad Phillip Age: 25 yrs Sex: Female : 1995 Arrival Date: 07/07/2020 Time: 19:42 Bed 16 Private MD: ED Physician Enrique Allison HPI: 07/07 20:59 This 25 yrs old Female presents to ER via Ambulatory with complaints of pkl Hemmorrhoid. 20:59 The patient presents to the emergency department with pain in the rectal area, that is pkl moderate, hemorrhoids. Onset: The symptoms/episode began/occurred 1 week(s) ago. Associate signs and symptoms: Pertinent positives: constipation. 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 - Social history:: Smoking status: Patient reports the use of cigarette tobacco products, denies chronic smoking, but will smoke occasionally. ROS: 20:59 Eyes: Negative for injury, pain, redness, and discharge, ENT: Negative for injury, pkl pain, and discharge, Neck: Negative for injury, pain, and swelling, Cardiovascular: Negative for chest pain, palpitations, and edema, Respiratory: Negative for shortness of breath, cough, wheezing, and pleuritic chest pain. 20:59 Abdomen/GI: Positive for painful hemorrhoids. 20:59 Back: Negative for acute changes. 20:59 : Negative for urinary symptoms. 20:59 MS/extremity: Negative for acute changes. 20:59 Skin: Negative for rash. 20:59 Neuro: Negative for altered mental status. Exam: 20:59 Head/Face: Normocephalic, atraumatic. Eyes: Pupils equal round and reactive to light, pkl extra-ocular motions intact. Lids and lashes normal. Conjunctiva and sclera are non-icteric and not injected. Cornea within normal limits. Periorbital areas with no swelling, redness, or edema. ENT: Nares patent. No nasal discharge, no septal abnormalities noted. Tympanic membranes are normal and external auditory canals are clear. Oropharynx with no redness, swelling, or masses, exudates, or evidence of obstruction, uvula midline. Mucous membranes moist. Neck: Trachea midline, no thyromegaly or masses palpated, and no cervical lymphadenopathy. Supple, full range of motion without nuchal rigidity, or vertebral point tenderness. No Meningismus. Chest/axilla: Normal chest wall appearance and motion. Nontender with no deformity. No lesions are appreciated. Cardiovascular: Regular rate and rhythm with a normal S1 and S2. No gallops, murmurs, or rubs. Normal PMI, no JVD. No pulse deficits. Respiratory: Lungs have equal breath sounds bilaterally, clear to auscultation and percussion. No rales, rhonchi or wheezes noted. No increased work of breathing, no retractions or nasal flaring. 20:59 Abdomen/GI: Bowel sounds: normal, Palpation: abdomen is soft and non-tender, in all quadrants, Rectal exam: hemorrhoid(s), external, with pain, tenderness, that is moderate. 20:59 Back: Exam negative for acute changes. 20:59 : Exam negative for acute changes. 20:59 Musculoskeletal/extremity: Exam is negative for acute changes. 20:59 Skin: Exam negative for rash. 20:59 Neuro: Orientation: is normal, Mentation: is normal, Cranial nerves: grossly normal, Motor: is normal. Vital Signs: 19:46 BP 127 / 79; Pulse 58; Resp 16 S; Temp 97.4(TE); Pulse Ox 100% on R/A; Weight 56.7 kg ca1 (R); Height 5 ft. 5 in. (165.10 cm) (R); Pain 10/10; 19:46 Body Mass Index 20.80 (56.70 kg, 165.10 cm) ca1 MDM: 20:38 Patient medically screened. pkl 21:04 Data reviewed: vital signs, nurses notes. pkl Administered Medications: 20:56 Drug: Zofran (Ondansetron) 4 mg Route: PO; jd3 21:23 Follow up: Response: No adverse reaction jd3 20:57 Not Given (Other Intervention Used): morphine 4 mg IVP once; RASS on ADMIN: Combtv4, jd3 Very Agttd3, Agttd2, Rstlss1, AlertClm0, Drwsy-1, Lt Sdtn-2, Mod Sdtn-3, Dp Sdtn-4, UnArsble-5 20:57 Drug: morphine 4 mg Route: IM; Site: left deltoid; jd3 21:23 Follow up: Response: No adverse reaction; RASS: Alert and Calm (0) jd3 21:22 Drug: Anusol-HC 25 mg 25 mg Route: UT; jd3 21:22 Follow up: Response: Medication administered at discharge. j Disposition: 07/07/20 21:06 Discharged to Home. Impression: Painful external hemorrhoids. - Condition is Stable. - Prescriptions for Anusol- HC 2.5 % Rectal Cream - Apply to affected area 1 application by TOPICAL route every 8 hours As needed; 30 gram. Anusol- HC 25 mg Rectal Suppository - insert 1 suppository by RECTAL route every 12 hours As needed; 10 suppository. - Medication Reconciliation Form, Thank You Letter, Antibiotic Education, Prescription Opioid Use form. - Follow up: Zac Moreland MD; When: 1 - 2 days; Reason: Re-evaluation by your physician. - Problem is new. - Symptoms are unchanged. Signatures: Enrique Allison MD MD pkl Harrison Rivers RN RN j Lila Whipple RN RN [facility] Corrections: (The following items were deleted from the chart) : 21:06 07/07/2020 21:06 Discharged to Home. Impression: Painful external hemorrhoids. jd3 Condition is Stable. Forms are Medication Reconciliation Form, Thank You Letter, Antibiotic Education, Prescription Opioid Use. Follow up: Zac Moreland; When: 1 - 2 days; Reason: Re-evaluation by your physician. Problem is new. Symptoms are unchanged. pkl
[2020-07-08 06:05] VITALS: BP 127/79; TEMP 97.4; O2SAT 100
== END 2020-07-07 21:23 | disposition home or self-care (01) ==
LOC: ER 19:37
DX: K64.9 Unspecified hemorrhoids (principal); F17.210 Nicotine dependence, cigarettes, uncomplicated
CPT/HCPCS: 96372; 99283

== ENCOUNTER → 2023-11-05 | Emergency (ER) | payer BC, SELFPAY ==
[~2023-11-05] MED LIST: DIPHENHYDRAMINE 25 MG TAB/CAP ONE
--- OUTSIDE RECORDS SUMMARY | 2023-11-05 21:33 | XMS REPORT | Continuity of Care Document ---
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 Name Role Phone [email or web address]_S Attending Clinician DR YANA Johnson Attending Clinician Marci rutherford [email or web address]_S Admitting Clinician DR YANA Johnson Admitting Clinician Marci rutherford Payers Payer Name Policy Type Policy Number Effective Date Expirati on Date Source [facility] [id number] 2020 00:00:00 [facility] [id number] 2014 00:00:00 Allergies, Adverse Reactions, Alerts Allergy Name Allergy Type Status Severity Reaction(s) Onset Date Inactive Date Treating Clinician Comments Source NO KNOWN ALLERGIE S Drug Class Active [facility] Encounters Start Date/Time End Date/Time Encounter Type Admission Type Attending Clinicians Care Facility Care Department Encounter ID Source 2023-06-29 00:00:00 2023-06-29 00:00:00 Outpatient [email or web address] [facility] [id number] [facility] 2020-09-19 13:23:00 2020-09-19 13:23:00 Emergency X [facility] ERT [id number] [facility] 2020-07-12 11:38:00 2020-07-12 11:38:00 Emergency X [facility] ERT [id number] [facility] 2019-03-11 16:01:00 2019-03-11 18:50:00 Emergency YANA PHILLIPS [facility] [id number] [facility] Results Test Description Test Time Test Comments Results Result Co mments Source CT HEAD W/O [id number] 17:36:29LOCATION: H43 EXAM: CT HEAD WO CONTRAST, [...] are midline in position and normal in size. The basilar cisternsare patent and symmetric.There is no [...] Theorbit sterling and contents intact. The mandible is intact. The temporomandibularjoint is preserved bilaterally. The airway is preserved. The retropharyngeal soft tissues are within normallimits.Prominent, symmetric lymph nodes are noted in the bilateral neck, measuring upto 12 x 14 mm in the bilateral level 2 station.Parotid and submandibular glands are symmetric and unremarkable in appearance. No evidence of acute hemorrhage or abnormalmass effect in the visualizedportion of the brain. IMPRESSION:Prominent scalp hematoma at the rightposterior vertex.No evidence of acute intracranial pathology.Partial opacification [...] vertex.There is no evidence of an acute intrac ranial hemorrhage or extra-axialcollection. The ventricles are midline in position and normal in size. The basilar cisternsare patent and symmetric.There is no confluent low-density to indicate an acute territorial infarct. Thedensity of the major dural sinuses is within normal limits.The orbits and their contents are unremarkable. The calvarium is intact. CT facial bones: There is partial opacification of the bilateral maxillary sinus including thepresence of air- fluid levels consistent with acute sinus disease. The paranasalsinuses and the mastoid air cells are otherwise clear.No acute fracture is identified. The maxillary sinus sterling are intact. Theorbit sterling and contents intact. The man dible is intact. The temporomandibularjoint is preserved bilaterally. The airway is preserved. The retropharyngeal soft tissues are within normallimits.Prominent, symmetric lymph nodes are noted in the bilateral neck, measuring upto 12 x 14 mm in the bilateral level 2 station.Parotid and submandibular glands are symmetric and unremarkable in appearance. No evidence of acute hemorrhage or abnormalmass effect in the visualizedportion of the brain. IMPRESSION:Prominent scalp hematoma at the rightposterior vertex.No evidence of acute intracranial pathology.Partial opacification of the bilateral maxillary sinus consistent with acutesinus disease. No evidence of an acute facial bone fracture.Prominent, symmetric lymph nodes in the bilateral neck. Correlate for an acuteinfectious or inflammatory process.XR RIBS RIGHT UNIL 3VW W/PA [id number] 17:28:27EXAM: Right rib series, 3 views; and [...] rib fracture or other acute abnormality.XR RIBS LEFT UNIL 3VWS W/PA [id number] 17:28:27EXAM: Right rib series, 3 views; and [...]
[2023-11-05 22:27] LABS: Specific Gravity 1.028 (1.005-1.030); Urine Bacteria <20 /HPF (<20); Urine Bilirubin NEGATIVE (Negative); Urine Blood Trace (Negative); Urine Clarity Turbid (Clear); Urine Color Light-Yellow (Yellow); Urine Glucose NEGATIVE (Negative); Urine Protein NEGATIVE (Negative); Urine Urobilinogen Normal (Normal); Urine Yeast (Budding) Trace /HPF (None Seen); Urine pH 6.5 (5.0-7.0)
--- NOTE | 2023-11-05 22:54 | RAD REPORT ---
EXAM DESCRIPTION: CTAbdomen Pelvis Wo Contrast - 11/05/2023 10:46 pm CLINICAL HISTORY: HEMATURIA, FLANK, BACK PAIN COMPARISON: No comparisons TECHNIQUE: CT of the abdomen and pelvis was performed. All CT scans are performed using dose optimization technique as appropriate and may include automated exposure control or mA/KV adjustment according to patient size. FINDINGS: Lower chest: No acute abnormality. Liver: No acute abnormality or suspicious lesions. Biliary: No biliary ductal dilatation. Stomach: No significant focal abnormality. Duodenum: No significant focal abnormality. Pancreas: No significant abnormality. Spleen: No significant abnormality. Adrenal: No suspicious lesions. Kidney/ureter: No hydronephrosis. No renal calculi. Retroperitoneum: No retroperitoneal adenopathy. Vascular: No aneurysm. Bowel: No significant focal abnormality. Peritoneum: No ascites or free air. Bladder: Grossly unremarkable. Reproductive: No adnexal masses. Bones: No acute fracture. Other: n/a IMPRESSION: No acute intra-abdominal or pelvic finding. No urinary tract calculi. Normal appendix .
--- NOTE | 2023-11-05 23:35 | EDPHYS ---
Physician Documentation [facility] Name: Caridad Phillip Age: 28 yrs Sex: Female : 1995 Arrival Date: 11/05/2023 Time: 21:30 Bed 8 Private MD: ED Physician Oscar Botello HPI: 11/04 22:09 This 28 yrs old Female presents to ER via Ambulatory with complaints of Eye Problem, sb4 Urinary Problem. 22:10 patient presents today with 2 complaints- 1 that her eyes have been irritated/itchy for sb4 a week or so and she intermittently sees black spots. she denies any blurry vision or chronic vision correction. she does have false eyelashes that were replaced 3 days ago, but she states that nothing has changed with those. denies any redness or discharge in her eyes. her second complaint is that she has had blood in her urine for a week as well and is having lower abdominal cramping associated with it. she denies any fever, nausea, vomiting, flank pain. 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 - Social history:: Smoking status: Patient reports the use of cigarette tobacco products, smokes one-half pack cigarettes per day. ROS: 22:10 Positive for hematuria, sb4 22:10 Constitutional: Negative for fever, chills, and weight loss, 22:10 Eyes: Positive for foreign body sensation, itching, photophobia, visual disturbance, 22:10 Abdomen/GI: Positive for abdominal pain, 22:10 All other systems are negative, Exam: 22:10 Visual Acuity: I have reviewed the nursing documentation. Visual acuity is within sb4 normal limits. 22:10 Constitutional: This is a well developed, well nourished patient who is awake, alert, and in no acute distress. Head/Face: Normocephalic, atraumatic. ENT: Mucous membranes moist. Cardiovascular: Regular rate and rhythm with a normal S1 and S2. Respiratory: Lungs have equal breath sounds bilaterally, clear to auscultation and percussion. No rales, rhonchi or wheezes noted. No increased work of breathing, no retractions or nasal flaring. Abdomen/GI: Soft, non-tender, no distension. Skin: Warm, dry with normal turgor. Normal color with no rashes, no lesions, and no evidence of cellulitis. MS/ Extremity: Pulses equal, no cyanosis. Neurovascular intact. Full, normal range of motion. Neuro: Awake and alert, GCS 15, oriented to person, place, time, and situation. Motor strength 5/5 in all extremities. Sensory grossly intact. 22:10 Eyes: Periorbital structures: appear normal, no abrasion, no cellulitis, no erythema, Pupils: equal, round, and reactive to light and accomodation, Extraocular movements: intact throughout, Conjunctiva: normal, no acute changes, Corneas: are normal, no acute changes, Lids and lashes: appear normal, no acute changes, no evidence of trauma, Visual brown: are intact, Nystagmus: is not appreciated, Vital Signs: 21:44 BP 129 / 97; Pulse 84; Resp 18 S; Temp 98.1(O); Pulse Ox 99% on R/A; Weight 95.25 kg as6 (R); Height 5 ft. 5 in. (R); Pain 8/10; 23:00 BP 107 / 64; Pulse 62; Resp 16; Pulse Ox 100% on R/A; km8 23:30 BP 128 / 89; Pulse 70; Resp 16; Temp 97.6(TE); Pulse Ox 100% on R/A; km8 21:44 Body Mass Index 34.95 (95.25 kg, 165.1 cm) as6 21:44 Pain Scale: Adult as6 [place] Coma Score: 21:49 Eye Response: spontaneous(4). Motor Response: obeys commands(6). Verbal Response: km8 oriented(5). Total: 15. Visual Acuity: 22:09 Left Eye Visual acuity 20/13, ; Right Eye Visual acuity 20/13, ; Both Eyes Visual km8 acuity 20/13; Without Lenses; MDM: 21:39 Patient medically screened. sb4 23:34 Data reviewed: vital signs, nurses notes, lab test result(s), radiologic studies, and sb4 as a result, I will discharge patient. Counseling: I had a detailed discussion with the patient and/or guardian regarding the historical points, exam findings, and any diagnostic results supporting the discharge/admit diagnosis, lab results, radiology results, the need for outpatient follow up, optometry if ocular symptoms persist. low vision therapist if hematuria persists, to return to the emergency department if symptoms worsen or persist or if there are any questions or concerns that arise at home. 11/04 21:53 Order name: UAM; Complete Time: 22:29 sb4 11/04 21:53 Order name: Test, Urine; Complete Time: 22:29 sb4 11/04 22:28 Order name: Glucose, Ancillary Testing; Complete Time: 22:29 EDMS 11/04 22:29 Order name: CT Abd/Pelvis - Without Contrast; Complete Time: 22:55 sb4 11/04 21:53 Order name: Visual Acuity; Complete Time: 22:09 sb4 11/04 22:10 Order name: Accucheck; Complete Time: 22:16 sb4 Administered Medications: 23:15 Drug: diphenhydrAMINE PO 25 mg PO once Route: PO; tm6 23:42 Follow up: Response: No adverse reaction km8 Point of Care Testing: Blood Glucose: 22:31 Blood Glucose: 99 mg/dL; tm6 Ranges: Critical Glucose Levels:Adult <50 mg/dl or >400 mg/dl <40 mg/dl or >180 mg/dl Disposition: 11/05 05:15 I was immediately available on-site in the Emergency Department for consultation in the ms3 care of the patient. Disposition Summary: 11/05/23 23:35 Discharge Ordered Notes: Location: Home sb4 Problem: an ongoing problem sb4 Symptoms: are unchanged sb4 Condition: Stable sb4 Diagnosis - allergic conjunctivitis, bilateral sb4 - Hematuria, unspecified sb4 Followup: sb4 - With: Cayden Mcgee MD - When: As needed - Reason: Recheck today's complaints, Re-evaluation by your physician Followup: sb4 - With: Teresa Mao MD - When: As needed - Reason: Further diagnostic work-up, Recheck today's complaints, Re-evaluation by your physician Discharge Instructions: - Discharge Summary Sheet sb4 - Hematuria, Adult sb4 - Allergic Conjunctivitis, Adult, [id number] sb4 Forms: - Thank You Letter sb4 - Patient Portal Instructions sb4 - Leadership Thank You Letter sb4 Prescriptions: - Pataday Once Daily Relief 0.7 % Ophthalmic drops - instill 1 drop OPHTHALMIC route every morning; 1 Applicator; Refills: 0, sb4 Product Selection Permitted Signatures: Dispatcher [employer] EDOscar Goff, DO ms3 Luca Varela, DANILO RN as6 Brittney Mcdaniels PA-C PA-C sb4 Masterson, Tawney, RN RN tm6 Xenia Orosco RN km8
--- NOTE | 2023-11-05 23:35 | ER ---
Nurse's Notes [facility] Name: Caridad Phillip Age: 28 yrs Sex: Female : 1995 Arrival Date: 11/05/2023 Time: 21:30 Bed 8 Private MD: Diagnosis: allergic conjunctivitis, bilateral;Hematuria, unspecified Presentation: 11/04 21:46 Chief complaint: Patient states: blood in urine, abdominal pain x1 week. bilateral eye as6 pain x2 days. Coronavirus screen: At this time, the client does not indicate any symptoms associated with coronavirus-19. Ebola Screen: No symptoms or risks identified at this time. Initial Sepsis Screen: Does the patient meet any 2 criteria? No. Patient's initial sepsis screen is negative. Does the patient have a suspected source of infection? No. Patient's initial sepsis screen is negative. Risk Assessment: Do you want to hurt yourself or someone else? Patient reports no desire to harm self or others. Onset of symptoms was October 29, 2023. 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 - Social history:: Smoking status: Patient reports the use of cigarette tobacco products, smokes one-half pack cigarettes per day. Screenin:49 [facility] ED Fall Risk Assessment (Adult) History of falling in the last 3 months, km8 including since admission No falls in past 3 months (0 pts) Confusion or Disorientation No (0 pts) Intoxicated or Sedated No (0 pts) Impaired Gait No (0 pts) Mobility Assist Device Used No (0 pt) Altered Elimination No (0 pt) Score/Fall Risk Level 0 - 2 = Low Risk Oriented to surroundings, Maintained a safe environment, Educated pt \T\ family on fall prevention, incl call for assistance when getting out of bed, Assessed \T\ reinforced patient's understanding of fall precautions. Abuse screen: Denies threats or abuse. Denies injuries from another. Nutritional screening: No deficits noted. Tuberculosis screening: No symptoms or risk factors identified. Assessment: 21:49 General: Appears in no apparent distress. comfortable, Behavior is calm, cooperative, km8 appropriate for age. Pain: Complains of pain in suprapubic area Pain currently is 8 out of 10 on a pain scale. Neuro: Level of Consciousness is awake, alert, obeys commands, Oriented to person, place, time, situation. Cardiovascular: Denies chest pain, shortness of breath, Patient's skin is warm and dry. Respiratory: Airway is patent Respiratory effort is even, unlabored, Respiratory pattern is regular, symmetrical. GI: Abdomen is non-distended, Reports lower abdominal pain. : Urine is clear, Reports blood in urine. EENT: Reports change in vision due to lights at night. Derm: No signs and/or symptoms reported regarding the dermatologic system. Skin is intact, is healthy with good turgor, Skin is dry, Skin is pink, warm \T\ dry. normal, Skin temperature is warm. Musculoskeletal: No signs and/or symptoms reported regarding the musculoskeletal system. Range of motion: intact in all extremities. 22:50 Reassessment: Patient appears in no apparent distress at this time. No changes from km8 previously documented assessment. Patient and/or family updated on plan of care and expected duration. Pain level reassessed. Patient is alert, oriented x 3, equal unlabored respirations, skin warm/dry/pink. Vital Signs: 21:44 BP 129 / 97; Pulse 84; Resp 18 S; Temp 98.1(O); Pulse Ox 99% on R/A; Weight 95.25 kg as6 (R); Height 5 ft. 5 in. (R); Pain 8/10; 23:00 BP 107 / 64; Pulse 62; Resp 16; Pulse Ox 100% on R/A; km8 23:30 BP 128 / 89; Pulse 70; Resp 16; Temp 97.6(TE); Pulse Ox 100% on R/A; km8 21:44 Body Mass Index 34.95 (95.25 kg, 165.1 cm) as6 21:44 Pain Scale: Adult as6 Visual Acuity: 22:09 Left Eye Visual acuity 20/13, ; Right Eye Visual acuity 20/13, ; Both Eyes Visual km8 acuity 20/13; Without Lenses; [place] Coma Score: 21:49 Eye Response: spontaneous(4). Motor Response: obeys commands(6). Verbal Response: km8 oriented(5). Total: 15. ED Course: 21:31 Patient arrived in ED. ra3 21:31 Brittney Mcdaniels PA-C is PHCP. sb4 21:31 Oscar Botello DO is Attending Physician. sb4 21:44 Arm band placed on. as6 21:47 Triage completed. as6 21:48 Xenia Orosco, DANILO is Primary Nurse. km8 21:49 Patient has correct armband on for positive identification. Bed in low position. Call km8 light in reach. Side rails up X 1. Pulse ox on. NIBP on. 21:49 Patient maintains SpO2 saturation greater than 95% on room air. km8 22:00 Test, Urine Sent. km8 22:00 UAM Sent. km8 22:00 Urine collected: clean catch specimen, clear. km8 22:48 CT Abd/Pelvis - Without Contrast In Process Unspecified. EDMS 23:15 Urine Culture Sent. tm6 23:34 Cayden Mcgee MD is Referral Physician. sb4 23:34 Teresa Moa MD is Referral Physician. sb4 23:42 Provided Education on: d/c teaching. km8 23:42 No provider procedures requiring assistance completed. Patient did not have IV access km8 during this emergency room visit. Administered Medications: 23:15 Drug: diphenhydrAMINE PO 25 mg PO once Route: PO; tm6 23:42 Follow up: Response: No adverse reaction km8 Medication: 23:42 VIS not applicable for this client. km8 Point of Care Testing: Blood Glucose: 22:31 Blood Glucose: 99 mg/dL; tm6 Ranges: Outcome: 23:35 Discharge ordered by . sb4 23:42 Discharged to home ambulatory, km8 23:42 Condition: good 23:42 Discharge instructions given to patient, Instructed on discharge instructions, follow up and referral plans. medication usage, Demonstrated understanding of instructions, follow-up care, medications, Prescriptions given X 1, 23:43 Patient left the ED. km8 Signatures: Dispatcher [employer] EDMS Luca Varela RN RN as6 Brittney Mcdaniels PA-C PA-C sb4 Xenia Orosco RN RN km8 Lupis Castaneda RN RN tm6 Suzanne, Sandy ra3
[2023-11-05 23:58] VITALS: BP 128/89; TEMP 97.6; O2SAT 100
== END ==
LOC: ER 21:30
DX: H10.13 Acute atopic conjunctivitis, bilateral (principal); R31.9 Hematuria, unspecified
CPT/HCPCS: 74176; 81001; 81025; 82947; 99284

== ENCOUNTER 2024-01-26 22:12 | Emergency (ER) | payer SELFPAY ==
--- OUTSIDE RECORDS SUMMARY | 2024-01-26 22:15 | XMS REPORT | Continuity of Care Document ---
Author Name Unknown Address [address] [place] [address] thconnect Address [address] [place] [address] 1 [address] [place] [address] Care Team Providers Care Director Of Digital Platforms Name Role Phone [email or web address]_S Attending Clinician DR YANA Jhonson Attending Clinician Marci rutherford [email or web address]_S Admitting Clinician DR YANA Johnson Admitting Clinician Marci rutherford Payers Payer Name Policy Type Policy Number Effective Date Expirati on Date Source [facility] [id number] 2020 00:00:00 [facility] [id number] 2014 00:00:00 Allergies, Adverse Reactions, Alerts Allergy Name Allergy Type Status Severity Reaction(s) Onset Date Inactive Date Treating Clinician Comments Source NO KNOWN ALLERGIE S Drug Class Active [facility] Encounters Start Date/Time End Date/Time Encounter Type Admission Type Attending Clinicians Care Facility Care Department Encounter ID Source 2023-06-29 00:00:00 2023-06-29 00:00:00 Outpatient [email or web address] [email or web address]_S [facility] [id number] [facility] 2020-09-19 13:23:00 2020-09-19 13:23:00 Emergency X [facility] ERT [id number] [facility] 2020-07-12 11:38:00 2020-07-12 11:38:00 Emergency X [facility] ERT [id number] [facility] 2019-03-11 16:01:00 2019-03-11 18:50:00 Emergency YANA PHILLIPS [facility] [id number] [facility] Results Test Description Test Time Test Comments Results Result Co mments Source CT HEAD W/O [id number] 17:36:29LOCATION: H43 EXAM: CT HEAD WO CONTRAST, [...] inflammatory process.XR RIBS LEFT UNIL 3VWS W/PA [id number] 17:28:27EXAM: Right rib series, 3 views; and [...] acute abnormality.XR RIBS RIGHT UNIL 3VW W/PA [id number] 17:28:27EXAM: Right rib series, 3 views; and [...]
[2024-01-26] MEDS ORDERED: TDAP (DIPHTH,PERTUSS(ACELL),TET VAC) 0.5 ML VIAL IMVAC ONE (22:49)
[2024-01-26] MEDS ORDERED: DERMABOND SKIN ADHESIVE TOP ONE (22:49)
[2024-01-26] MEDS ORDERED: HYDROCODONE/APAP 5/325 MG TAB ONE (23:04)
--- NOTE | 2024-01-26 23:42 | ER ---
Nurse's Notes [facility] Name: Caridad Phillip Age: 28 yrs Sex: Female : 1995 Arrival Date: 01/26/2024 Time: 22:12 Bed 7 Private MD: Diagnosis: Laceration with foreign body of left thumb without damage to nail, initial encounter;Other sprain of left thumb Presentation: 01/25 22:41 Chief complaint: Patient states: Was at work and the metal instrument that she was cm10 using fell and crushed her left thumb. Pt noted to have small laceration to thumb, bleeding controlled. Coronavirus screen: Client denies travel out of the [place] in the last 14 days. At this time, the client does not indicate any symptoms associated with coronavirus-19. Ebola Screen: Patient denies travel to an Ebola-affected area in the 21 days before illness onset. No symptoms or risks identified at this time. Complicating Factors: There are no complicating factors for this patient. Initial Sepsis Screen: Does the patient meet any 2 criteria? No. Patient's initial sepsis screen is negative. Does the patient have a suspected source of infection? No. Patient's initial sepsis screen is negative. Risk Assessment: Do you want to hurt yourself or someone else? Patient reports no desire to harm self or others. Onset of symptoms was January 26, 2024. 22:41 Method Of Arrival: Ambulatory cm10 22:41 Acuity: NINFA 4 cm10 Triage Assessment: 22:43 General: Appears in no apparent distress. comfortable, Behavior is calm, cooperative. cm10 Pain: Complains of pain in dorsal aspect of proximal phalanx of left thumb. Neuro: No deficits noted. Level of Consciousness is awake, alert, obeys commands, Oriented to person, place, time, situation, Appropriate for age. Respiratory: No deficits noted. Airway is patent Respiratory effort is even, unlabored, Respiratory pattern is regular, symmetrical. Injury Description: Laceration sustained to dorsal aspect of proximal phalanx of left thumb is clean, 0.5 to 2.5 cm long. Historical: - Allergies: 22:43 No Known Allergies; cm10 - PMHx: 22:43 Anxiety; cm10 - Immunization history:: Adult Immunizations up to date. - Infectious Disease History:: Denies. - Social history:: Smoking status: Reported history of juuling and/or vaping. Screenin:06 [facility] ED Fall Risk Assessment (Adult) History of falling in the last 3 months, tm6 including since admission No falls in past 3 months (0 pts) Confusion or Disorientation No (0 pts) Intoxicated or Sedated No (0 pts) Impaired Gait No (0 pts) Mobility Assist Device Used No (0 pt) Altered Elimination No (0 pt) Score/Fall Risk Level 0 - 2 = Low Risk Oriented to surroundings, Maintained a safe environment, Educated pt \T\ family on fall prevention, incl call for assistance when getting out of bed. Abuse screen: Denies threats or abuse. Denies injuries from another. Nutritional screening: No deficits noted. Tuberculosis screening: No symptoms or risk factors identified. Assessment: 23:06 General: Appears in no apparent distress. Behavior is calm, cooperative. Pain: tm6 Complains of pain in dorsal aspect of proximal phalanx of left thumb Pain currently is 7 out of 10 on a pain scale. Quality of pain is described as aching. Neuro: Level of Consciousness is awake, alert, obeys commands, Oriented to person, place, time, situation. Cardiovascular: No deficits noted. Patient's skin is warm and dry. Respiratory: No deficits noted. Airway is patent Respiratory effort is even, unlabored, Respiratory pattern is regular, symmetrical. GI: No deficits noted. Abdomen is round non-distended. : No signs and/or symptoms were reported regarding the genitourinary system. EENT: No signs and/or symptoms were reported regarding the EENT system. Derm: Wound noted dorsal aspect of proximal phalanx of left thumb Wound is approximately 0.5cm in length to left thumb. No longer bleeding. Musculoskeletal: Reports pain in dorsal aspect of proximal phalanx of left thumb. Injury Description: Laceration sustained to dorsal aspect of proximal phalanx of left thumb is clean, 0.5 to 2.5 cm long, not bleeding, is bleeding no active bleeding noted. Vital Signs: 22:41 BP 119 / 71; Pulse 87; Resp 16; Temp 98.9; Pulse Ox 97% on R/A; Weight 86.18 kg; Height cm10 5 ft. 5 in. ; Pain 9/10; 01/26 00:01 BP 109 / 77; Pulse 84; Resp 19; Temp 97.3(TE); Pulse Ox 99% on R/A; Pain 2/10; tm6 01/25 22:41 Body Mass Index 31.62 (86.18 kg, 165.1 cm) cm10 01/25 22:41 Pain Scale: Adult cm10 01/26 00:01 Pain Scale: Adult tm6 ED Course: 01/25 22:18 Patient arrived in ED. gm2 22:27 [facility]cd[facility] sb[facility] 22:27 Wes Mason MD is Attending Physician. sb4 22:43 Triage completed. cm10 22:44 Arm band placed on Patient placed in waiting room. cm10 22:46 Lupis Castaneda, DANILO is Primary Nurse. tm6 23:06 Patient has correct armband on for positive identification. Bed in low position. Call tm6 light in reach. Side rails up X 1. Provided Education on: use of call hernadez. Client placed on continuous cardiac and pulse oximetry monitoring. NIBP monitoring applied. Pulse ox on. NIBP on. Door closed. Noise minimized. 23:06 Wound care: to laceration located on dorsal aspect of proximal phalanx of left thumb tm6 was cleaned with Hibiclens, Patient tolerated well. 23:24 Hand Left 3 View XRAY In Process Unspecified. EDMS 23:41 Wes Mason MD is Referral Physician. sb4 01/26 00:01 No provider procedures requiring assistance completed. Patient did not have IV access tm6 during this emergency room visit. finger splint. Administered Medications: 01/25 23:06 Drug: Boostrix Tdap IM 0.5 ml IM once; as a single dose Route: IM; Site: left deltoid; tm6 23:06 Drug: HYDROcodone-acetaminophen PO 5 mg-325 mg 1 tabs PO once Route: PO; tm6 Medication: 23:06 VIS not applicable for this client. tm6 Outcome: 23:42 Discharge ordered by . sb4 01/26 00:01 Discharged to home ambulatory, with friend, tm6 Condition: stable Discharge instructions given to patient, Instructed on discharge instructions, follow up and referral plans. Demonstrated understanding of instructions, follow-up care, 00:03 Patient left the ED. tm6 Signatures: Dispatcher [employer] EDMS Brittney Mcdaniels PA-C PAGoldie sb4 Marry Hammond RN RN cm10 Anu Sam 2 Lupis Castaneda RN RN tm6 Corrections: (The following items were deleted from the chart) 01/25 22:43 22:43 PMHx: diabetes mellitus; cm10 cm10
--- NOTE | 2024-01-26 23:42 | EDPHYS ---
Physician Documentation [facility] Name: Caridad Phillip Age: 28 yrs Sex: Female : 1995 Arrival Date: 01/26/2024 Time: 22:12 Bed 7 Private MD: ED Physician Wes Mason HPI: 01/25 23:34 This 28 yrs old Female presents to ER via Ambulatory with complaints of Laceration To sb4 Hand. 23:34 The patient has a laceration related to: working, from a sharp metal object, occurred sb4 at an industrial site, and there are no complicating factors. The injury was accidental. The laceration(s) is(are) located on the dorsal aspect of proximal phalanx of left thumb. Onset: The symptoms/episode began/occurred today. Associated signs and symptoms: The patient has no apparent associated signs or symptoms. The patient has not experienced similar symptoms in the past. Historical: - Allergies: 22:43 No Known Allergies; cm10 - PMHx: 22:43 Anxiety; cm10 - Immunization history:: Adult Immunizations up to date. - Infectious Disease History:: Denies. - Social history:: Smoking status: Reported history of juuling and/or vaping. ROS: 23:34 Constitutional: Negative for fever, chills, and weight loss, sb4 23:34 Skin: Positive for laceration(s), 23:34 All other systems are negative, Exam: 23:34 Constitutional: This is a well developed, well nourished patient who is awake, alert, sb4 and in no acute distress. Head/Face: Normocephalic, atraumatic. Eyes: Extra-ocular motions intact. Periorbital areas with no swelling, redness, or edema. ENT: Mucous membranes moist. 23:34 Skin: injury, laceration(s), the wound is approximately 2.5 cm(s), with a depth of .2 cm(s), of the dorsal aspect of proximal phalanx of left thumb, that can be described as clean, no foreign body, linear, without bleeding, Vital Signs: 22:41 BP 119 / 71; Pulse 87; Resp 16; Temp 98.9; Pulse Ox 97% on R/A; Weight 86.18 kg; Height cm10 5 ft. 5 in. ; Pain 9/10; 01/26 00:01 BP 109 / 77; Pulse 84; Resp 19; Temp 97.3(TE); Pulse Ox 99% on R/A; Pain 2/10; tm6 01/25 22:41 Body Mass Index 31.62 (86.18 kg, 165.1 cm) cm10 01/25 22:41 Pain Scale: Adult cm10 01/26 00:01 Pain Scale: Adult tm6 Laceration: 01/25 23:41 Wound Repair of 2.5cm ( 1.0in ) subcutaneous laceration to dorsal aspect of proximal sb4 phalanx of left thumb. Distal neuro/vascular/tendon intact. Wound prep: Moderate cleansing with hibiclenz by nurse, Wound irrigation with saline by me. Skin closed with thin layer Adhesive skin closure using Dermabond. Dressed with non-adherent dressing. Patient tolerated well. MDM: 22:30 Patient medically screened. sb4 23:41 Data reviewed: vital signs, nurses notes, radiologic studies, and as a result, I will sb4 discharge patient. Counseling: I had a detailed discussion with the patient and/or guardian regarding the historical points, exam findings, and any diagnostic results supporting the discharge/admit diagnosis, radiology results, to return to the emergency department if symptoms worsen or persist or if there are any questions or concerns that arise at home. 01/25 23:06 Order name: Hand Left 3 View XRAY 4 01/25 22:46 Order name: Wound Care; Complete Time: 23:06 sb4 01/25 22:46 Order name: Dermabond; Complete Time: 23:46 4 01/25 23:40 Order name: Splint - Finger; Complete Time: 00:01 sb4 Administered Medications: 23:06 Drug: Boostrix Tdap IM 0.5 ml IM once; as a single dose Route: IM; Site: left deltoid; tm6 23:06 Drug: HYDROcodone-acetaminophen PO 5 mg-325 mg 1 tabs PO once Route: PO; tm6 Disposition: 23:41 Chart complete. sb4 01/26 03:08 Co-signature as Attending Physician, Wes Mason MD I agree with the assessment sp4 and plan of care. I reviewed the patient's care provided by the Advanced Practice Provider and agree with the diagnosis and treatment plan. Disposition Summary: 01/26/24 23:42 Discharge Ordered Notes: Location: Home sb4 Problem: new sb4 Symptoms: have improved sb4 Condition: Stable sb4 Diagnosis - Laceration with foreign body of left thumb without damage to nail, initial encountersb4 - Other sprain of left thumb sb4 Followup: sb4 - With: Private Physician - When: As needed - Reason: Recheck today's complaints, Re-evaluation by your physician Discharge Instructions: - Discharge Summary Sheet sb4 - Thumb Sprain sb4 - Sutures, Humble, or Adhesive Wound Closure, Echs-lo-Mizr sb4 Forms: - Patient Portal Instructions sb4 - Leadership Thank You Letter sb4 Signatures: Dispatcher [employer] EDMS Brittney Mcdaniels PA-C PA-C sb4 Wes Mason MD MD sp4 Marry Hammond RN RN cm10 Lupis Castaneda RN RN tm6 Corrections: (The following items were deleted from the chart) 01/25 22:43 22:43 PMHx: diabetes mellitus; cm10 cm10
[2024-01-27 01:04] VITALS: BP 109/77; TEMP 97.3; O2SAT 99
--- NOTE | 2024-01-27 15:30 | RAD REPORT ---
EXAM DESCRIPTION: RAD - Hand Left 3 View - 01/26/2024 11:22 pm CLINICAL HISTORY: 28 years Female, PAIN COMPARISON: None. FINDINGS: No fracture or dislocation. Joint spaces are preserved. Soft tissues are unremarkable. IMPRESSION: No acute osseous abnormality. Electronically signed by: Cristhian Elizabeth DO 01/26/2024 11:35 PM CDT RP 9 Due to temporary technical issues with the PACS/Fluency reporting system, reports are being signed by the in house radiologists without review as a courtesy to insure prompt reporting. The interpreting radiologist is fully responsible for the content of the report.
== END 2024-01-27 00:03 | disposition home or self-care (01) ==
LOC: ER 22:12
PROC: 0HQGXZZ Repair Left Hand Skin, External Approach (ICD-10-PCS; principal; 2024-01-27)
DX: S61.012A Laceration without foreign body of left thumb without damage to nail, initial encounter (principal); S63.682A Other sprain of left thumb, initial encounter
CPT/HCPCS: 96372; 99284

== ENCOUNTER 2024-12-10 11:49 | Emergency (ER) | payer SELFPAY ==
--- OUTSIDE RECORDS SUMMARY | 2024-12-10 11:55 | XMS REPORT | Continuity of Care Document ---
Author Name Unknown Address [address] [place] [address] [facility] Address [address] [place] [address] Care Team Providers Care Human Resources Benefits Manager Name Role Phone Pcp, Patient Does Not Have A Primary Care Physic collins Yarelis Flores DNP Attending Clinician [phone] Campaigns, Generic Provider Attending Clinician Rolando Becerra PA-C Attending Clinician [email or web address]_S Attending Clinician DR YANA Johnson Attending Clinician Marci rutherford [email or web address]_[place]_S Admitting Clinician DR YANA Johnson Admitting Clinician Marci rutherford Payers Payer Name Policy Type Policy Number Effective Date Expirati on Date Source [facility] [id number] 2020 00:00:00 Allergies, Adverse Reactions, Alerts Allergy Name Allergy Type Status Severity Reaction(s) Onset Date Inactive Date Treating Clinician Comments Source NO KNOWN ALLERGIE S Drug Class Active [facility] Family History Family Member Diagnosis Comments Start Date Stop Date Sourc e Maternal grandmother Diabetes [facility] Natural mother Diabetes [facility] Social History Social Habit Start Date Stop Date Quantity Comments Source [facility] Tobacco use and exposure 2024-10-22 00:00:00 2024-10-22 00:00:00 Smokeless tobacco non-user [facility] Alcoholic beverage intake 2024-10-22 00:00:00 2024-10-22 00:00:00 Ex-drinker (finding) [facility] History of Social function 2024-10-22 00:00:00 2024-10-22 00:00:00 [facility] Sex assigned at 1995 00:00:00 1995 00:00:00 [facility] Smoking Status Start Date Stop Date Source Tobacco smoking consumption unknown [facility] Never smoked tobacco [facility] Medications Ordered Medication Name Filled Medication Name Start Date Stop Date Current Medication? Ordering Clinician Indication Dosage Frequency Signature (SIG) Comments Components Source metroNIDAZO LE 500 mg tablet 10-31 00:00: 00 11-08 04:59 :00 Yes [id number] 500mg Take 1 tablet by mouth in the morning and 1 tablet in the evening. Do all this for 7 days. [facility] levonorgest rel-ethinyl estradiol (LESSINA) 0.1-20 mg-mcg per tablet 10-22 00:00: 00 Yes [id number] 1{tbl} Take 1 tablet by mouth in the morning. [facility] hydrocortis one 25 mg suppository 09-19 00:00: 00 Yes [id number] 25mg Insert 1 Suppositor y into rectum 2 (two) times daily. [facility] Vital Signs Vital Name Observation Time Observation Value Comments S ource Systolic blood pressure 2024-10-22 20:15:00 111 mm[Hg] [facility] Diastolic blood pressure 2024-10-22 20:15:00 73 mm[Hg] [facility] Heart rate 2024-10-22 20:15:00 83 /min [facility] Body temperature 2024-10-22 20:15:00 36.61 Emmanuelle [facility] Respiratory rate 2024-10-22 20:15:00 16 /min [facility] Body height 2024-10-22 20:15:00 165.1 cm [facility] Body weight 2024-10-22 20:15:00 69.627 kg [facility] BMI 2024-10-22 20:15:00 25.54 kg/m2 [facility] Systolic blood pressure 2024-01-27 01:47:00 136 mm[Hg] [facility] Diastolic blood pressure 2024-01-27 01:47:00 80 mm[Hg] [facility] Heart rate 2024-01-27 01:47:00 88 /min [facility] Body temperature 2024-01-27 01:47:00 37 Emmanuelle [facility] Respiratory rate 2024-01-27 01:47:00 16 /min [facility] Body height 2024-01-27 01:47:00 165.1 cm [facility] Body weight 2024-01-27 01:47:00 81.647 kg [facility] BMI 2024-01-27 01:47:00 29.95 kg/m2 [facility] Oxygen saturation in Arterial blood by Pulse oximetry 2024-01-27 01:47:00 100 /min [facility] Systolic blood pressure 2024-10-22 20:15:00 111 mm[Hg] [facility] Diastolic blood pressure 2024-10-22 20:15:00 73 mm[Hg] [facility] Heart rate 2024-10-22 20:15:00 83 /min [facility] Body temperature 2024-10-22 20:15:00 36.61 Emmanuelle [facility] Respiratory rate 2024-10-22 20:15:00 16 /min [facility] Body height 2024-10-22 20:15:00 165.1 cm [facility] Body weight 2024-10-22 20:15:00 69.627 kg [facility] BMI 2024-10-22 20:15:00 25.54 kg/m2 [facility] Oxygen saturation in Arterial blood by Pulse oximetry 2024-01-27 01:47:00 100 /min [facility] Procedures Procedure Date / Time Performed Performing Clinicia n Source POCT TEST 2024-10-22 20:47:00 Yarelis Flores [facility] POCT TEST 2024-10-22 20:47:00 DeborahjyotsnaYarelis shine [facility] Encounters Start Date/Time End Date/Time Encounter Type Admission Type Attending [facility] Care Facility Care Department Encounter ID Source 2024-10-31 00:00:00 2024-10-31 16:30:13 Telephone Yarelis Flores [facility] [id number] [facility] 2024-10-31 00:00:00 2024-10-31 12:00:40 Case Management RommelYarelis rock [facility] [id number] [id number] [id number] [facility] 2024-10-22 00:00:00 2024-10-22 15:02:42 Letter (Out) Yarelis Flores 1.2.840.1 [id number] [facility] 2024-10-22 14:00:00 2024-10-22 14:56:09 Office Visit Mark Yarelis 1.2.840.1 [id number] [facility] 2024-10-22 00:00:00 2024-10-22 00:00:00 Travel 1.2.840.1 [id number] [id number] [id number] 4.2.7.3.698 [id number] [facility] 2024-02-08 00:00:00 2024-02-08 10:10:02 Letter (Out) [facility] Provider [facility] [id number] [id number] 4.2.7.2.686 [id number] [facility] 2024-01-26 20:50:00 2024-01-26 22:30:00 Emergency Rolando Tobar [facility] [id number] [id number] 4.2.7.2.686 [id number] [facility] 2023-06-29 00:00:00 2023-06-29 00:00:00 Outpatient GC_GCBZW_Ka diyala_S PRIV PRIV [id number] [facility] 2020-09-19 13:23:00 2020-09-19 13:23:00 Emergency X [facility] ERT [id number] [facility] 2020-07-12 11:38:00 2020-07-12 11:38:00 Emergency X [facility] ERT [id number] [facility] 2019-03-11 16:01:00 2019-03-11 18:50:00 Emergency YANA PHILLIPS [facility] [id number] [facility] Results Test Description Test Time Test Comments Results Result Co mments Source [facility] SER[facility] [id number] 18:18:00 * Test Item Value Reference Range Interpretation Comme nts PREG SRM (test code = PGS) NEGATIVE NEGATIVE CT HEAD W/O [id number] 17:36:29LOCATION: H43 EXAM: CT HEAD WO CONTRAST, [...] inflammatory process.XR RIBS LEFT UNIL 3VWS W/PA [id number] 17:28:27EXAM: Right rib series, 3 views; and [...] acute abnormality.XR RIBS RIGHT UNIL 3VW W/PA [id number] 17:28:27EXAM: Right rib series, 3 views; and [...] evidence of rib fracture or other acute abnormality. Notes Date/Time Note Provider Source 2024-10-31 16:29:48 Images from the original note were not included. Name and verified. Patient informed of lab results and new Rx sent to pharmacy. Patient verbalized understanding. [facility] Cristin Chen MA [facility] 2024-10-31 11:46:35 Images from the original note were not included. Fax received from [facility] regarding lab results. Will route to provider for review. [facility] 2024-01-26 22:28:26 Patient eloped before disposition. Patient called from [facility] with no answer. [facility] Lilia Menjivar RN [facility] 2024-01-26 22:03:23 Patient called from [facility], no answer [facility] 2024-01-26 21:50:00 Patient called from [facility], no answer [facility] 2024-01-26 20:46:07 Pt presents at work with left thumb injury after metal machine slammed down on it while at work. Injury occurred 1.5 hrs ago. Tdap unknown status. 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 Taylor Dallas RN [facility]
[2024-12-10] MEDS ORDERED: ONDANSETRON 4 MG (ODT) TAB ONE (12:14)
[2024-12-10] MEDS ORDERED: FAMOTIDINE 20 MG/2 ML VIAL IV ONE (13:12)
[2024-12-10] MEDS ORDERED: NA CHLORIDE 0.9% 1,000 ML ONE (13:12)
[2024-12-10 13:18] LABS: Absolute Eosinophils 0.1 K/uL (0-0.5); Absolute Lymphocytes (CBC) 1.5 K/uL (0.7-4.9); Absolute Monocytes 0.5 K/uL (0.1-1.3); Absolute Neutrophil 7.4 K/uL (1.8-8.0); Basophils % 0.5 % (0-1.3); Eosinophils % 1.2 % (0-4.4); Hematocrit 37.6 % (36.0-45.0); Lymphocytes % 15.3 % (15.3-44.8); MCH 30.7 pg (27.0-35.0); MCHC 34.4 g/dL (32.0-36.0); Platelets 334 thou/uL (152-406); RBC Red Blood Cell Count 4.22 M/uL (3.86-4.86); Red Cell Distribution Width 12.7 % (12.1-15.2)
[2024-12-10] MEDS ORDERED: DICYCLOMINE HCL 20 MG/2 ML AMP IM ONE (13:19)
[2024-12-10 13:38] LABS: Albumin 3.9 g/dL (3.4-5.0); Alkaline Phosphatase 59 U/L (45-117); Anion Gap 8.5 mEq/L (5.0-15.0); BUN Blood Urea Nitrogen 12 mg/dL (7-18); Bicarbonate 27 mEq/L (21-32); Bilirubin Total 0.2 mg/dL (0.2-1.0); Globulin 3.8 g/dL (2.3-3.5); Glomerular Filtration Rate 107 ml/min (=/>90); Glucose Level 113 mg/dL (74-106); Lipase 38 U/L (13-75); Potassium 4.5 mEq/L (3.5-5.1); Protein, Total 7.7 g/dL (6.4-8.2); Sodium Level 136 mEq/L (136-145)
[2024-12-10 13:53] LABS: ALT/SGPT < 14 U/L (13-56); AST/SGOT < 10 U/L (15-37)
--- NOTE | 2024-12-10 14:29 | RAD REPORT ---
EXAMINATION: US Abdomen Exam Limited CLINICAL HISTORY: [facility] MA[facility] Y vomiting Bed Name: 20 COMPARISON: None. TECHNIQUE: Limited upper abdominal grayscale and color flow sonographic images. FINDINGS: Gallbladder: Mild layering sludge. No gallstones, wall thickening, or pericholecystic fluid. Bile ducts: No intrahepatic or extrahepatic biliary dilatation. Common bile duct measures 2 mm. Liver: Visualized portions of the liver demonstrate normal echogenicity with no suspicious findings. Fluid: No ascites. IMPRESSION: No abnormalities on right upper quadrant ultrasound.
--- NOTE | 2024-12-10 14:48 | RAD REPORT ---
EXAMINATION: ONE VIEW CHEST XR CLINICAL INDICATION: Female, 29 years old.,vomiting TECHNIQUE: Frontal chest projection is submitted. Examination is limited by patient positioning and t echnique. COMPARISON: 03/20/2024 FINDINGS: The lungs are well inflated and clear. No pneumothorax or sizable effusion. The heart is normal in s ize. Mediastinal contours are unremarkable. IMPRESSION: No acute intrathoracic abnormalities.
--- NOTE | 2024-12-10 14:49 | ER ---
Nurse's Notes [facility] Name: Caridad Phillip Age: 29 yrs Sex: Female : 1995 Arrival Date: 12/10/2024 Time: 11:49 Bed 20 Private MD: Diagnosis: Nausea with vomiting, unspecified;Diarrhea, unspecified Presentation: 12/10 12:15 Chief complaint: Patient states: Vomiting, diarrhea, and abdominal cramping onset this cm10 morning. Coronavirus screen: Client denies travel out of the [place] in the last 14 days. Ebola Screen: Patient denies travel to an Ebola-affected area in the 21 days before illness onset. Initial Sepsis Screen: Does the patient meet any 2 criteria? No. Patient's initial sepsis screen is negative. Does the patient have a suspected source of infection? No. Patient's initial sepsis screen is negative. Risk Assessment: Do you want to hurt yourself or someone else? Patient reports no desire to harm self or others. Onset of symptoms was December 10, 2024. 12:15 Method Of Arrival: Ambulatory cm10 12:15 Acuity: NINFA 3 cm10 Triage Assessment: 12:16 General: Appears uncomfortable, Behavior is calm, cooperative. Pain: Complains of pain cm10 in abdomen Pain currently is 10 out of 10 on a pain scale. Quality of pain is described as crampy. Neuro: No deficits noted. Level of Consciousness is awake, alert, obeys commands, Oriented to person, place, time, situation, Appropriate for age. Respiratory: Airway is patent Respiratory effort is even, unlabored, Respiratory pattern is regular, symmetrical. GI: Reports cramping, diarrhea, nausea, vomiting. RELAY MECHANIC: 15:10 Not kj2 Historical: - Allergies: 12:16 No Known Allergies; cm10 - PMHx: 12:16 Anxiety; cm10 - Immunization history:: Adult Immunizations up to date. - Infectious Disease History:: Denies. - Social history:: Smoking status: Reported history of juuling and/or vaping. Screenin:10 [facility] ED Fall Risk Assessment (Adult) History of falling in the last 3 months, kj2 including since admission No falls in past 3 months (0 pts) Confusion or Disorientation No (0 pts) Intoxicated or Sedated No (0 pts) Impaired Gait No (0 pts) Mobility Assist Device Used No (0 pt) Altered Elimination No (0 pt) Score/Fall Risk Level 0 - 2 = Low Risk Maintained a safe environment, Hourly rounding (assess needs \T\ fall precautionary measures) done. Abuse screen: Denies threats or abuse. Denies injuries from another. Nutritional screening: No deficits noted. Tuberculosis screening: No symptoms or risk factors identified. Assessment: 13:10 General: Appears in no apparent distress. Behavior is calm. Pain: Complains of pain in kj2 abdomen Pain currently is 6 out of 10 on a pain scale. 13:10 Neuro: Level of Consciousness is awake, alert, obeys commands, Oriented to person, kj2 place, time, situation. Cardiovascular: No deficits noted. Patient's skin is warm and dry. Respiratory: Airway is patent Respiratory effort is unlabored. GI: No signs and/or symptoms were reported involving the gastrointestinal system. : No signs and/or symptoms were reported regarding the genitourinary system. 14:10 Reassessment: Patient appears in no apparent distress at this time. Patient and/or kj2 family updated on plan of care and expected duration. Pain level reassessed. Patient is alert, oriented x 3, equal unlabored respirations, skin warm/dry/pink. 15:08 Reassessment: Patient appears in no apparent distress at this time. Patient and/or kj2 family updated on plan of care and expected duration. Pain level reassessed. Patient is alert, oriented x 3, equal unlabored respirations, skin warm/dry/pink. Vital Signs: 12:15 BP 110 / 98; Pulse 63; Resp 15; Temp 97.5(O); Pulse Ox 100% on R/A; Weight 70.31 kg; cm10 Height 5 ft. 5 in. ; Pain 10/10; 13:10 BP 112 / 94; Pulse 64; Resp 18; Pulse Ox 100% on R/A; kj2 14:10 BP 112 / 90; Pulse 62; Resp 18; Temp 98; Pulse Ox 100% ; kj2 15:09 BP 114 / 88; Pulse 66; Resp 20; Pulse Ox 100% on R/A; kj2 15:09 Pulse Ox 98% ; kj2 12:15 Body Mass Index 25.79 (70.31 kg, 165.1 cm) cm10 12:15 Pain Scale: Adult cm10 ED Course: 11:56 Patient arrived in ED. cj3 11:57 Elkin Wise PA is PHCP. cp 11:57 Butch Perez MD is Attending Physician. cp 12:16 Triage completed. cm10 12:17 Arm band placed on left wrist. Patient placed in an exam room, on a stretcher. cm10 13:00 Missed attempt(s): 20 gauge in left antecubital area. Bleeding controlled, band aid ss applied, catheter tip intact. 13:09 Inserted saline lock: 20 gauge in left antecubital area, using aseptic technique. Blood ss collected. Flushed with 10 mL NS. 13:10 Patient has correct armband on for positive identification. Bed in low position. Call kj2 light in reach. Provided Education on: call light. 13:20 Inserted. ss 13:25 Maxine Sharma, RN is Primary Nurse. kj2 14:12 US Abdomen Limited: gallbladder In Process Unspecified. EDMS 14:13 XRAY Chest (1 view) In Process Unspecified. EDMS 15:10 No provider procedures requiring assistance completed. IV discontinued, intact, kj2 bleeding controlled, No redness/swelling at site. Pressure dressing applied. Administered Medications: 12:24 Drug: Ondansetron PO 4 mg PO once Route: PO; cm10 15:11 Follow up: Response: No adverse reaction kj2 13:20 Drug: Famotidine IVP 20 mg IVP once; dilute with 10 mL 0.9% NaCl; give over 2 minutes ss Route: IVP; Site: left antecubital; 15:11 Follow up: Response: No adverse reaction kj2 13:21 Drug: NS 0.9% IV 1000 ml IV at 1 bolus Per protocol; to be given as a bolus over 60 ss minutes Route: IV; Rate: 1 bolus; Site: left antecubital; 15:12 Follow up: IV Status: Completed infusion; IV Intake: 1000ml kj2 13:25 Drug: Dicyclomine IM 20 mg IM once Route: IM; Site: left deltoid; kj2 15:11 Follow up: Response: No adverse reaction kj2 Medication: 13:40 VIS not applicable for this client. kj2 Intake: 15:12 IV: 1000ml; Total: 1000ml. kj2 Outcome: 14:48 Discharge ordered by . cp 15:10 Discharged to home ambulatory, kj2 15:10 Condition: stable 15:10 Discharge instructions given to patient, Instructed on discharge instructions, follow up and referral plans. Demonstrated understanding of instructions, follow-up care, 15:20 Patient left the ED. kj2 Signatures: Dispatcher [employer] EDMS Joaquina Cabrera, RN RN ss Elkin Wise, CECE PA Marry Martines RN RN cm10 Maxine Sharma RN RN kj2 Sandra Hall 3
--- NOTE | 2024-12-10 14:49 | EDPHYS ---
Physician Documentation [facility] Name: Caridad Phillip Age: 29 yrs Sex: Female : 1995 Arrival Date: 12/10/2024 Time: 11:49 Bed 20 Private MD: ED Physician Butch Perez HPI: 12/10 12:30 This 29 yrs old Female presents to ER via Ambulatory with complaints of Nausea/Vomiting.cp 12:30 The patient presents to the emergency department with nausea, that is moderate, cp vomiting, that is continuous, diarrhea, that is intermittent, abdominal pain, of the abdomen diffusely, described as crampy. Onset: The symptoms/episode began/occurred this morning. 12:30 Possible causes: bad food exposure. 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 - Infectious Disease History:: Denies. - Social history:: Smoking status: Reported history of juuling and/or vaping. ROS: 12:35 Constitutional: Positive for body aches, chills, poor PO intake, Negative for fever, cp 12:35 Eyes: Negative for injury, pain, redness, and discharge, cp 12:35 ENT: Negative for drainage from ear(s), ear pain, sore throat, difficulty swallowing, difficulty handling secretions, 12:35 Cardiovascular: Negative for chest pain, 12:35 Respiratory: Negative for cough, shortness of breath, wheezing, 12:35 Abdomen/GI: Positive for nausea, vomiting, and diarrhea, abdominal cramps, 12:35 Neuro: Negative for altered mental status, dizziness, headache, 12:35 All other systems are negative, Exam: 12:40 Constitutional: The patient appears in no acute distress, alert, awake, non-toxic, well cp developed, well nourished, uncomfortable, 12:40 Head/Face: Normocephalic, atraumatic. cp 12:40 Eyes: Periorbital structures: appear normal, Conjunctiva: normal, no exudate, no injection, Sclera: no appreciated abnormality, Lids and lashes: appear normal, bilaterally, 12:40 ENT: External ear(s): are unremarkable, Nose: is normal, Mouth: Lips: moist, Oral mucosa: pink and intact, moist, Posterior pharynx: Airway: no evidence of obstruction, patent, erythema, is not appreciated, exudate, is not appreciated, 12:40 Neck: ROM/movement: is normal, is supple, without pain, no range of motions limitations, 12:40 Chest/axilla: Inspection: normal, 12:40 Cardiovascular: Rate: normal, Rhythm: regular, 12:40 Respiratory: the patient does not display signs of respiratory distress, Respirations: normal, no use of accessory muscles, no retractions, labored breathing, is not present, Breath sounds: are clear throughout, no decreased breath sounds, no stridor, no wheezing, 12:40 Abdomen/GI: Inspection: abdomen appears normal, Bowel sounds: active, all quadrants, Palpation: soft, in all quadrants, moderate abdominal tenderness, in all quadrants, rebound tenderness, is not appreciated, 12:40 Back: CVA tenderness, is absent, 12:40 Neuro: Orientation: to person, place \T\ time. Mentation: is normal, Motor: moves all fours, strength is normal, Sensation: is normal, Vital Signs: 12:15 BP 110 / 98; Pulse 63; Resp 15; Temp 97.5(O); Pulse Ox 100% on R/A; Weight 70.31 kg; cm10 Height 5 ft. 5 in. ; Pain 10/10; 13:10 BP 112 / 94; Pulse 64; Resp 18; Pulse Ox 100% on R/A; kj2 14:10 BP 112 / 90; Pulse 62; Resp 18; Temp 98; Pulse Ox 100% ; kj2 15:09 BP 114 / 88; Pulse 66; Resp 20; Pulse Ox 100% on R/A; kj2 15:09 Pulse Ox 98% ; kj2 12:15 Body Mass Index 25.79 (70.31 kg, 165.1 cm) cm10 12:15 Pain Scale: Adult cm10 MDM: 13:00 Differential diagnosis: gastritis, cholecystitis, pancreatitis, appendicitis, viral cp gastroenteritis, gastroenteritis, viral Infection, bacterial infection, pneumonia. 14:41 Data reviewed: vital signs, nurses notes, lab test result(s), radiologic studies, plain cp films, ultrasound. Independent interpretation of the following test(s) in the Emergency Department X-Ray: My interpretation is chest xray negative for infiltrates. 14:48 Medical Screening Exam initiated 14:48 I considered the following discharge prescriptions or medication management in the emergency department Medications were administered in the Emergency Department. See MAR. 14:48 Counseling: I had a detailed discussion with the patient and/or guardian regarding the historical points, exam findings, and any diagnostic results supporting the discharge/admit diagnosis, lab results, radiology results, to return to the emergency department if symptoms worsen or persist or if there are any questions or concerns that arise at home. Response to treatment: the patient's symptoms have markedly improved after treatment, and as a result, I will discharge patient. Special discussion: Based on the patient's Hx, exam, and Dx evaluation, there is no indication for emergent surgery or inpatient Tx. It is understood by the patient/guardian that if the Sx's persist or worsen they need to return immediately for re-evaluation. 12/10 12:20 Order name: CBC with Diff; Complete Time: 13:48 12/10 14:03 Interpretation: Normal except: DOE% 78.0. 12/10 12:20 Order name: CMP; Complete Time: 14:02 12/10 14:02 Interpretation: Normal except: GLUC 113; AST < 10; GLOB 3.8; A/G 1.0. 12/10 12:20 Order name: Lipase; Complete Time: 14:02 12/10 13:49 Order name: XRAY Chest (1 view) 12/10 13:49 Order name: US Abdomen Limited: gallbladder; Complete Time: 14:40 12/10 14:40 Interpretation: Report reviewed. 12/10 12:20 Order name: IV Saline Lock; Complete Time: 13:09 12/10 12:20 Order name: Labs collected and sent; Complete Time: 13:09 12/10 14:40 Order name: PO challenge; Complete Time: 15:11 Administered Medications: 12:24 Drug: Ondansetron PO 4 mg PO once Route: PO; cm10 15:11 Follow up: Response: No adverse reaction kj2 13:20 Drug: Famotidine IVP 20 mg IVP once; dilute with 10 mL 0.9% NaCl; give over 2 minutes ss Route: IVP; Site: left antecubital; 15:11 Follow up: Response: No adverse reaction kj2 13:21 Drug: NS 0.9% IV 1000 ml IV at 1 bolus Per protocol; to be given as a bolus over 60 ss minutes Route: IV; Rate: 1 bolus; Site: left antecubital; 15:12 Follow up: IV Status: Completed infusion; IV Intake: 1000ml kj2 13:25 Drug: Dicyclomine IM 20 mg IM once Route: IM; Site: left deltoid; kj2 15:11 Follow up: Response: No adverse reaction kj2 Disposition: 17:34 Co-signature as Attending Physician, Butch Perez MD I reviewed the patient's care rn provided by the Advanced Practice Provider and agree with the diagnosis and treatment plan. Disposition Summary: 12/10/24 14:48 Discharge Ordered Notes: Location: Home cp Problem: new cp Symptoms: have improved cp Condition: Stable cp Diagnosis - Nausea with vomiting, unspecified cp - Diarrhea, unspecified cp Followup: cp - With: Private Physician - When: 2 - 3 days - Reason: Worsening of condition Discharge Instructions: - Discharge Summary Sheet cp - Food Choices to Help Relieve Diarrhea, Adult cp - Diarrhea, Adult cp - Nausea and Vomiting, Adult cp - Form - Excuse from Work, School, or Physical Activity cp Forms: - Medication Reconciliation Form cp - Antibiotic Education cp - Prescription Opioid Use cp - Patient Portal Instructions cp - Leadership Thank You Letter cp Prescriptions: - Pepcid 20 mg Oral Tablet - take 1 tablet ORAL route every 12 hours for 10 days; 20 tablet; Refills: 0, cp Product Selection Permitted - Zofran 4 mg Oral Tablet - take 1 tablet ORAL route every 12 hours As needed; 20 tablet; Refills: 0, cp Product Selection Permitted Signatures: Dispatcher [employer] EDMS Butch Perez MD MD rn Blanchard, Shelby RN RN Elkin Hurst PA PA cp Marry Hammond RN RN cm10 Maxine Sharma RN RN kj2 Corrections: (The following items were deleted from the chart) 13:49 13:49 Abdomen Limited+[email or web address] ordered. EDID EDMS
[2024-12-10 15:27] VITALS: TEMP 98
[2024-12-10 15:28] VITALS: BP 114/88; O2SAT 98
== END 2024-12-10 15:20 | disposition home or self-care (01) ==
LOC: ER 11:49
DX: R11.2 Nausea with vomiting, unspecified (principal); R19.7 Diarrhea, unspecified
CPT/HCPCS: 36415; 71045; 76705; 80053; 83690; 85025; 96361; 96372; 96374; 99284; J0500; J7030; Q0162

== ENCOUNTER 2025-05-31 21:11 | Emergency (ER) | payer SELFPAY ==
--- OUTSIDE RECORDS SUMMARY | 2025-05-31 21:14 | XMS REPORT | Continuity of Care Document ---
Author Name Unknown Address [address] [facility] [address] [place] [address] [facility] Address [address] [facility] [address] [place] [address] Care Team Providers Care Director Of Recruitment Name Role Phone PCP, PATIENT DOES NOT HAVE A Primary Care Physic collins Unavailable BRIANNA AGUILERA Attending Clinician UnavailYarelis Oneill DNP Attending Clinician Campaigns, Generic Provider Attending Clinician Unavailable Rolando Tobar PA-C Attending Clinician [phone] YANA SANTIAGO Attending Clinician DR YANA Johnson Admitting Clinician Marci rutherford Payers Payer Name Policy Type Policy Number Effective Date Expirati on Date Source [facility] [id number] 2020 00:00:00 Problems Condition Name Condition Details Condition Category Status Onset Date Resolution Date Last Treatment Date Treating Clinician Comments Source Avulsion of nail of left little finger Avulsion of nail of left little finger Disease Active 01-31 00:00: 00 [facility] Cellulitis of left little finger Cellulitis of left little finger Disease Active 01-31 00:00: 00 [facility] Allergies, Adverse Reactions, Alerts Allergy Name Allergy Type Status Severity Reaction(s) Onset Date Inactive Date Treating Clinician Comments Source NO KNOWN ALLERGIE S Drug Class Active [facility] Family History Family Member Diagnosis Comments Start Date Stop Date Sourc e Maternal grandmother Diabetes [facility] Natural mother Diabetes [facility] Social History Social Habit Start Date Stop Date Quantity Comments Source [facility] Alcoholic beverage intake 2025-01-31 00:00:00 2025-01-31 00:00:00 Ex-drinker (finding) [facility] History of Social function 2025-01-31 00:00:00 2025-01-31 00:00:00 [facility] Tobacco use and exposure 2024-10-22 00:00:00 2024-10-22 00:00:00 Smokeless tobacco non-user [facility] Sex assigned at 1995 00:00:00 1995 00[birth year]00:00 [facility] Smoking Status Start Date Stop Date Source Tobacco smoking consumption unknown [facility] Never smoked tobacco [facility] Medications Ordered Medication Name Filled Medication Name Start Date Stop Date Current Medication? Ordering Clinician Indication Dosage Frequency Signature (SIG) Comments Components Source lidocaine 1% (XYLOCAINE) 10 mg/mL (1 %) injection 10 mL 02-01 01:15: 00 02-01 01:15 :00 No 10mL 10 mL, Infiltrati on, ONCE, 1 dose, On Tue01/31/25 at 2014, JOSEPH [facility] cephALEXin 500 mg capsule 01-31 00:00: 00 02-08 04:59 :00 No [id number] 108 500mg Take 1 capsule by mouth 4 times daily for 7 days. [facility] metroNIDAZO LE 500 mg tablet 10-31 00:00: 00 11-08 04:59 :00 No [id number] 500mg Take 1 tablet by mouth in the morning and 1 tablet in the evening. Do all this for 7 days. [facility] levonorgest rel-ethinyl estradiol (LESSINA) 0.1-20 mg-mcg per tablet 10-22 00:00: 00 Yes [id number] 1{tbl} Take 1 tablet by mouth in the morning. [facility] hydrocortis one 25 mg suppository 09-19 00:00: 00 Yes [id number] 25mg Insert 1 Suppositor y into rectum 2 (two) times daily. [facility] Vital Signs Vital Name Observation Time Observation Value Comments S joão Systolic blood pressure 2025-02-01 01:39:00 125 mm[Hg] [facility] Diastolic blood pressure 2025-02-01 01:39:00 84 mm[Hg] [facility] Heart rate 2025-02-01 01:39:00 66 /min [facility] Body temperature 2025-02-01 01:39:00 36.78 Emmanuelle [facility] Respiratory rate 2025-02-01 01:39:00 18 /min [facility] Oxygen saturation in Arterial blood by Pulse oximetry 2025-02-01 01:39:00 100 /min [facility] Body height 2025-01-31 23:47:00 165.1 cm [facility] Body weight 2025-01-31 23:47:00 65.772 kg [facility] BMI 2025-01-31 23:47:00 24.13 kg/m2 [facility] BMI 2024-10-22 20:15:00 25.54 kg/m2 [facility] Systolic blood pressure 2024-10-22 20:15:00 111 mm[Hg] [facility] Diastolic blood pressure 2024-10-22 20:15:00 73 mm[Hg] [facility] Heart rate 2024-10-22 20:15:00 83 /min [facility] Body temperature 2024-10-22 20:15:00 36.61 Emmanuelle [facility] Respiratory rate 2024-10-22 20:15:00 16 /min [facility] Body height 2024-10-22 20:15:00 165.1 cm [facility] Body weight 2024-10-22 20:15:00 69.627 kg [facility] Systolic blood pressure 2024-01-27 01:47:00 136 mm[Hg] [facility] Diastolic blood pressure 2024-01-27 01:47:00 80 mm[Hg] [facility] Heart rate 2024-01-27 01:47:00 88 /min [facility] Body temperature 2024-01-27 01:47:00 37 Emmanuelle [facility] Respiratory rate 2024-01-27 01:47:00 16 /min [facility] Body height 2024-01-27 01:47:00 165.1 cm [facility] Body weight 2024-01-27 01:47:00 81.647 kg [facility] BMI 2024-01-27 01:47:00 29.95 kg/m2 [facility] Oxygen saturation in Arterial blood by Pulse oximetry 2024-01-27 01:47:00 100 /min [facility] Systolic blood pressure 2024-10-22 20:15:00 111 mm[Hg] [facility] Diastolic blood pressure 2024-10-22 20:15:00 73 mm[Hg] [facility] Heart rate 2024-10-22 20:15:00 83 /min [facility] Body temperature 2024-10-22 20:15:00 36.61 Emmanuelle [facility] Respiratory rate 2024-10-22 20:15:00 16 /min [facility] Body height 2024-10-22 20:15:00 165.1 cm [facility] Body weight 2024-10-22 20:15:00 69.627 kg [facility] BMI 2024-10-22 20:15:00 25.54 kg/m2 [facility] Oxygen saturation in Arterial blood by Pulse oximetry 2024-01-27 01:47:00 100 /min [facility] Procedures Procedure Date / Time Performed Performing Clinicia n Source POCT TEST 2024-10-22 20:47:00 Yarelis Flores [facility] POCT TEST 2024-10-22 20:47:00 Yarelis Flores [facility] Encounters Start Date/Time End Date/Time Encounter Type Admission Type Attending [facility] Care Facility Care Department Encounter ID Source 2025-01-31 18:53:00 2025-01-31 20:44:00 Emergency X BRIANNA AGUILERA [facility] ERT [id number] [facility] 2024-10-31 00:00:00 2024-10-31 16:30:13 Telephone Yarelis Flores [facility] [id number] [id number] [facility] 2024-10-31 00:00:00 2024-10-31 12:00:40 Case Management Yarelis Flores [facility] [id number] [id number] [id number] [facility] 2024-10-22 00:00:00 2024-10-22 15:02:42 Letter (Out) MarkYarelis 1.2.840.1 [id number] [id number] [facility] 2024-10-22 14:00:00 2024-10-22 14:56:09 Office Visit PollyYarelis shine 1.2.840.1 [id number] [facility] 2024-10-22 00:00:00 2024-10-22 00:00:00 Travel 1.2.840.1 [id number] [id number] .8 [id number] [id number] 4.2.7.3.698 [id number] [facility] 2024-02-08 00:00:00 2024-02-08 10:10:02 Letter (Out) Sharon, [facility] Provider [facility] [id number] 350.1.13.10 4.2.7.2.686 [id number] [facility] 2024-01-26 20:50:00 2024-01-26 22:30:00 Emergency Rolando Tobar [facility] [id number] 350.1.13.10 4.2.7.2.686 [id number] [facility] 2020-09-19 13:23:00 2020-09-19 13:23:00 Emergency X [facility] ERT [id number] [facility] 2020-07-12 11:38:00 2020-07-12 11:38:00 Emergency X [facility] ERT [id number] [facility] 2019-03-11 16:01:00 2019-03-11 18:50:00 Emergency YANA PHILLIPS [facility] [id number] [facility] Results Test Description Test Time Test Comments Results Result Co mments Source [facility] SER[facility] [id number] 18:18:00 * Test Item Value Reference Range Interpretation Comme nts PREG SRM (test code = PGS) NEGATIVE NEGATIVE CT HEAD W/O [id number] 17:36:29LOCATION: H43 EXAM: CT HEAD WO CONTRAST, [...] inflammatory process.XR RIBS LEFT UNIL 3VWS W/PA [id number] 17:28:27EXAM: Right rib series, 3 views; and [...] acute abnormality.XR RIBS RIGHT UNIL 3VW W/PA [id number] 17:28:27EXAM: Right rib series, 3 views; and [...] acute abnormality. Notes Date/Time Note Provider Source 2025-01-31 20:42:48 Pt given printed and verbal discharge instructions regarding avulsion of nail, cellulitis of left little finger, encouraged hydration. Prescription x1 sent to pharmacy Discussed ibuprofen and to take with food to avoid GI distress. Discussed antibiotic therapy and to take until all completed unless adverse reaction occurs - if occurs, discontinue medication and follow up with pcp/seek medical attention Pt verbalized understanding of instructions, pt awake alert oriented, resp reg unlabored, skin w/d, color appropriate for race, moves all ext well,pt encouraged to follow up with pcp. Advised to seek medical attention for new/prolonged/worsening of symptoms, Symptoms changes in wound condition No adverse reaction to meds given in ER noted upon discharge Awake, alert oriented, resp reg unlabored, skin w/d, pt leaving ambulatory without assist, in no apparent distress, [facility] 2025-01-31 18:47:48 Pt arrived ambulatory without assist. Pt c/o breaking nail off two days ago but there is still a piece hang on. [facility] Xenia Smith RN [facility] 2024-10-31 16:29:48 Images from the original note were not included. Name and verified. Patient informed of lab results and new Rx sent to pharmacy. Patient verbalized understanding. [facility] Cristin Chen MA [facility] 2024-10-31 11:46:35 Images from the original note were not included. Fax received from [facility] regarding lab results. Will route to provider for review. [facility] 2024-01-26 22:28:26 Patient eloped before disposition. Patient called from lobby with no answer. Lilia Menjivar RN [facility] 2024-01-26 22:03:23 Patient called from beverly, franck answer [facility] 2024-01-26 21:50:00 Patient called from beverly, franck answer [facility] 2024-01-26 20:46:07 Pt presents at work with left thumb injury after metal machine slammed down on it while at work. Injury occurred 1.5 hrs ago. Tdap unknown status. 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 Taylor [place] RN [facility]
[2025-05-31] MEDS ORDERED: ONDANSETRON 4 MG/2 ML VIAL ONE (21:42)
[2025-05-31] MEDS ORDERED: NA CHLORIDE 0.9% 1,000 ML ONE (21:42)
[2025-05-31 22:22] LABS: Absolute Lymphocytes (CBC) 3.3 K/uL (0.7-4.9); Hematocrit 36.9 % (36.0-45.0); Hemoglobin 12.7 g/dL (12.0-15.0); MCH 30.4 pg (27.0-35.0); MCHC 34.4 g/dL (32.0-36.0); MCV 88.4 fL (80-100); MPV 7.6 fL (7.6-11.3); Nucleated RBC Absolute Count 0.0 (0-0); Nucleated Red Blood Cells % 0.1 % (0-0); RBC Red Blood Cell Count 4.17 M/uL (3.86-4.86); White Blood Count 7.10 thou/uL (4.3-10.9)
[2025-05-31 22:22] LABS: Sqamous Epithelial <5 /HPF (None Seen); Urine Culture Reflex Order NOT NEEDED; Urine Microscopic Reflex YN ORDER UMIC
[2025-05-31 22:34] LABS: METHAMPHETAM NEGATIVE (NEGATIVE); THC Cannibis NEGATIVE (NEGATIVE)
--- NOTE | 2025-05-31 22:37 | RAD REPORT ---
EXAM: Chest Single View HISTORY: 29 years Female CHEST PAIN COMPARISON: 12/10/2024 FINDINGS: LUNGS/PLEURA: The lungs are clear. No pleural effusions or pneumothorax. No pulmonary edema. CARDIAC/MEDIASTINUM: The cardiac silhouette is within normal limits. UPPER ABDOMEN: No significant abnormality. BONES: No acute abnormality. LINES/TUBES/OTHER: N/A IMPRESSION: No evidence of acute cardiopulmonary disease.
[2025-05-31 23:16] LABS: PT Prothrombin Time 13.3 SECONDS (10-13.0); Protime INR 1.18
[2025-05-31 23:17] LABS: D-Dimer < 0.215 FEUug/mL (0-0.500)
[2025-05-31] MEDS ORDERED: LORazepam 2 MG/ML VIAL ONE (23:17)
[2025-05-31] MEDS ORDERED: KETOROLAC 30 MG/ML INJ ONE (23:18)
[2025-05-31 23:29] LABS: Potassium 3.4 mEq/L (3.5-5.1)
[2025-05-31 23:30] LABS: ALT/SGPT 15 U/L (13-56); AST/SGOT 12 U/L (15-37); Albumin 3.8 g/dL (3.4-5.0); Albumin/Globulin Ratio 1.2 (1.1-1.8); Alkaline Phosphatase 43 U/L (45-117); Anion Gap 7.4 mEq/L (5.0-15.0); BUN Blood Urea Nitrogen 15 mg/dL (7-18); Globulin 3.1 g/dL (2.3-3.5); Glucose Level 82 mg/dL (74-106); Magnesium 2.2 mg/dL (1.6-2.4); NT PRO-BNP 36 pg/mL (<125)
[2025-05-31 23:41] LABS: Bilirubin Indirect, Calculated 0.0 mg/dL (0.2-0.8); Troponin High Sensitivity < 3.0 pg/mL (<58.9)
--- NOTE | 2025-06-01 01:31 | RAD REPORT ---
EXAM: CT Head Without Intravenous Contrast FACILITY: [facility] CLINICAL HISTORY: 29 years, Female; HEADACHE TECHNIQUE: Axial computed tomography images of the head/brain without intravenous contrast. Sagittal and cor onal reformatted images were created and reviewed. This CT exam was performed using one or more of the following dose reduction techniques: automated exposure control, adjustment of the mA and/or kV according to patient size, and/or use of iterative reconstruction technique. COMPARISON: No relevant prior studies available. FINDINGS: Brain: Unremarkable. No hemorrhage. No significant white matter disease. No edema. Ventricles: Unremarkable. No ventriculomegaly. Bones/joints: Unremarkable. No acute fracture. Soft tissues: Unremarkable. Sinuses: Unremarkable as visualized. No acute sinusitis. Mastoid air cells: Unremarkable as visualized. No mastoid effusion. IMPRESSION: No acute intracranial findings. Electronically signed by: Damien Vela MD 06/01/2025 01:06 AM CDT RP H Due to temporary technical issues with the [employer]ACS[employer] reporting system, reports are being solo d by the in-house radiologist without review as a courtesy to ensure prompt reporting the interpreting radiologist is fully responsible for the content of the report. Transcribed Date/Time: 06/01/2025 1:31 AM
--- NOTE | 2025-06-01 01:32 | RAD REPORT ---
EXAM: CT Angiography Chest With Intravenous Contrast CLINICAL HISTORY: The patient is 29 years old and is Female; CHEST PAIN TECHNIQUE: Axial computed tomographic angiography images of the chest with intravenous contrast. Sagittal an d coronal reformatted images were created and reviewed. This CT exam was performed using one or more of the following dose reduction techniques: automated exposure control, adjustment of the mA a nd/or kV according to patient size, and/or use of iterative reconstruction technique. MIP reconstructed images were created and reviewed. COMPARISON: No relevant prior studies available. FINDINGS: PULMONARY ARTERIES: Unremarkable. No pulmonary embolism. AORTA: No acute findings. No thoracic aortic aneurysm. LUNGS AND PLEURAL SPACES: Unremarkable. No mass. No consolidation. No significant effusion. No pneumothorax. HEART: Unremarkable. No cardiomegaly. No significant pericardial effusion. No evidence of R V dysfunction. BONES/JOINTS: No acute fracture. No dislocation. SOFT TISSUES: Unremarkable. LYMPH NODES: Unremarkable. No enlarged lymph nodes. IMPRESSION: Normal chest CTA. No pulmonary embolism. Electronically signed by: Jess Goodwin MD 06/01/2025 01:16 AM T Due to temporary technical issues with the [employer]ACS/[employer] reporting system, reports are being solo d by the in-house radiologist without review as a courtesy to ensure prompt reporting the interpreting radiologist is fully responsible for the content of the report. Transcribed Date/Time: 06/01/2025 1:32 AM
--- NOTE | 2025-06-01 01:49 | ER ---
Nurse's Notes [facility] Name: Caridad Phillip Age: 29 yrs Sex: Female : 1995 Arrival Date: 05/31/2025 Time: 21:11 Bed 17 Private MD: Diagnosis: Chest pain, unspecified;Nausea;Paresthesia of skin Presentation: 05/31 21:24 Chief complaint: Patient states: CHEST FEELS FULL OF PRESSURE, RT ARM NUMBNESS AND dd2 NAUSEA X 6 HOURS. PT DENIES VOMITING, COUGH OR CONGESTION. Coronavirus screen: At this time, the client does not indicate any symptoms associated with coronavirus-19. Ebola Screen: No symptoms or risks identified at this time. Initial Sepsis Screen: Does the patient meet any 2 criteria? No. Patient's initial sepsis screen is negative. Does the patient have a suspected source of infection? No. Patient's initial sepsis screen is negative. Risk Assessment: Do you want to hurt yourself or someone else? Patient reports no desire to harm self or others. Onset of symptoms was May 31, 2025. 21:24 Method Of Arrival: Ambulatory dd2 21:24 Acuity: NINFA 3 dd2 Triage Assessment: 21:27 General: Appears in no apparent distress. well groomed, well nourished, Behavior is dd2 calm, cooperative, appropriate for age. Pain: Complains of pain in chest Pain currently is 7 out of 10 on a pain scale. Quality of pain is described as pressure. 21:27 Neuro: Reports numbness in right arm. Cardiovascular: Reports chest pain, JVD is absent dd2 Patient's skin is warm and dry. GI: Reports nausea. 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 - Infectious Disease History:: Denies. - Social history:: Smoking status: Reported history of juuling and/or vaping. Screenin:50 [facility] ED Fall Risk Assessment (Adult) History of falling in the last 3 months, kj2 including since admission No falls in past 3 months (0 pts) Confusion or Disorientation No (0 pts) Intoxicated or Sedated No (0 pts) Impaired Gait No (0 pts) Mobility Assist Device Used No (0 pt) Altered Elimination No (0 pt) Score/Fall Risk Level 0 - 2 = Low Risk Maintained a safe environment, Hourly rounding (assess needs \T\ fall precautionary measures) done. Abuse screen: Denies threats or abuse. Denies injuries from another. Nutritional screening: No deficits noted. Tuberculosis screening: No symptoms or risk factors identified. Assessment: 21:50 General: Appears in no apparent distress. Behavior is cooperative. Pain: Complains of kj2 pain in right arm and chest Pain radiates to right arm Pain currently is 4 out of 10 on a pain scale. Pain began gradually. Neuro: Level of Consciousness is awake, alert, obeys commands, Oriented to person, place, time, situation. Cardiovascular: Patient's skin is warm and dry. Respiratory: Airway is patent Respiratory effort is even, unlabored. GI: No signs and/or symptoms were reported involving the gastrointestinal system. 22:50 Reassessment: Patient appears in no apparent distress at this time. Patient and/or kj2 family updated on plan of care and expected duration. Pain level reassessed. Patient is alert, oriented x 3, equal unlabored respirations, skin warm/dry/pink. 23:38 Reassessment: Patient appears in no apparent distress at this time. Patient and/or kj2 family updated on plan of care and expected duration. Pain level reassessed. Patient is alert, oriented x 3, equal unlabored respirations, skin warm/dry/pink. 06/01 00:50 General: Appears in no apparent distress. comfortable, Behavior is calm, cooperative. tb4 Pain: Complains of pain in chest Pain does not radiate. Pain currently is 3 out of 10 on a pain scale. Quality of pain is described as pressure, Pain began gradually, Is continuous. Neuro: Level of Consciousness is awake, alert, obeys commands, Oriented to person, place, time, situation, Moves all extremities. Full function Gait is steady, Speech is normal, Facial symmetry appears normal. Cardiovascular: Capillary refill < 3 seconds is brisk in bilateral fingers Patient's skin is warm and dry. Respiratory: Airway is patent Respiratory effort is even, unlabored, Respiratory pattern is regular, symmetrical. GI: No signs and/or symptoms were reported involving the gastrointestinal system. : No deficits noted. No signs and/or symptoms were reported regarding the genitourinary system. EENT: No deficits noted. No signs and/or symptoms were reported regarding the EENT system. Derm: No deficits noted. No signs and/or symptoms reported regarding the dermatologic system. Skin is intact, is healthy with good turgor, Skin is dry, Skin is normal, Skin temperature is warm. Musculoskeletal: No deficits noted. No signs and/or symptoms reported regarding the musculoskeletal system. Circulation, motion, and sensation intact. Range of motion: intact in all extremities. Vital Signs: 05/31 21:24 BP 133 / 87; Pulse 72; Resp 16; Temp 98.2; Pulse Ox 100% ; Weight 67.13 kg; Height 5 dd2 ft. 5 in. ; Pain 7/10; 22:50 BP 127 / 109; Pulse 80; Resp 18; Pulse Ox 99% on R/A; kj2 23:37 BP 118 / 66; Pulse 87; Resp 18; Pulse Ox 100% ; kj2 06/01 00:51 BP 122 / 72; Pulse 83; Resp 18; Pulse Ox 98% on R/A; tb4 02:15 BP 109 / 69; Pulse 73; Resp 18; Pulse Ox 99% on R/A; tb4 05/31 21:24 Body Mass Index 24.63 (67.13 kg, 165.1 cm) dd2 05/31 21:24 Pain Scale: Adult dd2 ED Course: 05/31 21:14 Patient arrived in ED. im 21:22 Elkin Wise PA-C is PHCP. cp 21:22 Aurelio Crawley DO is Attending Physician. cp 21:27 Triage completed. dd2 21:27 Arm band placed on right wrist. dd2 21:47 Maxine Sharma, RN is Primary Nurse. kj2 21:50 Patient has correct armband on for positive identification. Bed in low position. Call kj2 light in reach. Adult w/ patient. Provided Education on: call light. Client placed on continuous cardiac and pulse oximetry monitoring. NIBP monitoring applied. quality assurance monitor on. Pulse ox on. NIBP on. 22:17 Inserted saline lock: 20 gauge in left antecubital area, using aseptic technique. Blood oe collected. Flushed with 10 mL NS. 22:21 EKG done, by ED staff, reviewed by Elkin Page PA-C. rk3 22:27 No provider procedures requiring assistance completed. Patient maintains SpO2 kj2 saturation greater than 95% on room air. 22:34 XRAY Chest (1 view) In Process Unspecified. EDMS 06/01 00:11 Report given to DANILO Henry. kj2 00:39 CT Head Brain wo Cont In Process Unspecified. EDMS 00:43 CT Chest For PE Angio In Process Unspecified. EDMS 02:16 IV discontinued, intact, bleeding controlled, No redness/swelling at site. Pressure tb4 dressing applied. Administered Medications: 05/31 22:15 Drug: Ondansetron IVP 4 mg IVP once; over 2 minutes Route: IVP; Site: left antecubital; kj2 23:48 Follow up: Response: No adverse reaction kj2 22:15 Drug: NS 0.9% IV 1000 ml IV at 1000 ml once; to be given as a bolus over 90 minutes kj2 Route: IV; Rate: 1000 ml; Site: left antecubital; 23:49 Follow up: IV Status: Completed infusion; IV Intake: 1000ml kj2 23:23 Drug: Ketorolac IVP 15 mg IVP once Route: IVP; Site: left antecubital; kj2 23:49 Follow up: Response: No adverse reaction kj2 23:23 Drug: Ativan IVP 0.5 mg IVP once Route: IVP; Site: left antecubital; kj2 23:49 Follow up: Response: No adverse reaction kj2 Medication: 22:27 VIS not applicable for this client. kj2 Intake: 23:49 IV: 1000ml; Total: 1000ml. kj2 Outcome: 06/01 01:48 Discharge ordered by . esperanza 02:16 Discharged to home ambulatory, with family, tb4 02:16 Condition: stable 02:16 Discharge instructions given to patient, Instructed on discharge instructions, follow up and referral plans. Demonstrated understanding of instructions, follow-up care, medications, Prescriptions given X 2, 02:36 Patient left the ED. tb4 Signatures: Dispatcher [employer] EDMS Elkin Wise PA-C PA-C cp Espinosa, Orlando oe Mendoza, Itzel im Jordan, Krystal RN RN kj2 GELA GONSALEZ RN RN dd2 Keya Dow rk3 Elaine Mcdaniels, RN RN tb4
--- NOTE | 2025-06-01 01:49 | EDPHYS ---
Physician Documentation [facility] Name: Caridad Phillip Age: 29 yrs Sex: Female : 1995 Arrival Date: 05/31/2025 Time: 21:11 Bed 17 Private MD: ED Physician Aurelio Crawley HPI: 05/31 21:55 This 29 yrs old Female presents to ER via Ambulatory with complaints of Chest Pressure, cp Numbness Of Arm - right, Nausea. 21:55 The patient or guardian reports chest pain that is located primarily in the anterior cp chest wall, right. 21:55 The pain radiates to the right arm. Associated signs and symptoms: Pertinent positives: cp nausea, numbness, Pertinent negatives: abdominal pain, diaphoresis, lower extremity pain, lower extremity swelling, syncope, vomiting. The chest pain is described as a pressure. Duration: The patient or guardian reports a single episode, that is still ongoing. Severity of pain: in the emergency department the pain is unchanged despite home interventions. 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 - Infectious Disease History:: Denies. - Social history:: Smoking status: Reported history of juuling and/or vaping. ROS: 22:00 Constitutional: Negative for body aches, chills, fever, poor PO intake, cp 22:00 Eyes: Negative for injury, pain, redness, and discharge, cp 22:00 Cardiovascular: Positive for chest pain, 22:00 Respiratory: Negative for cough, shortness of breath, wheezing, 22:00 Abdomen/GI: Positive for nausea, Negative for abdominal pain, vomiting, diarrhea, constipation, 22:00 MS/extremity: Positive for paresthesias, of the right arm, 22:00 Neuro: Negative for altered mental status, headache, syncope, near syncope, weakness, 22:00 All other systems are negative, Exam: 22:05 Constitutional: The patient appears in no acute distress, alert, awake, cp non-diaphoretic, non-toxic, well developed, well nourished, uncomfortable, 22:05 Head/Face: Normocephalic, atraumatic. cp 22:05 Eyes: Periorbital structures: appear normal, Conjunctiva: normal, no exudate, no injection, Sclera: no appreciated abnormality, Lids and lashes: appear normal, bilaterally, 22:05 ENT: External ear(s): are unremarkable, Nose: is normal, Mouth: Lips: moist, Oral mucosa: moist, Posterior pharynx: Airway: no evidence of obstruction, patent, 22:05 Chest/axilla: Inspection: normal, 22:05 Cardiovascular: Rate: normal, Rhythm: regular, Edema: is not appreciated, JVD: is not appreciated, 22:05 Respiratory: the patient does not display signs of respiratory distress, Respirations: normal, no use of accessory muscles, no retractions, labored breathing, is not present, Breath sounds: are clear throughout, no decreased breath sounds, no stridor, no wheezing, 22:05 Abdomen/GI: Inspection: abdomen appears normal, Palpation: abdomen is soft and non-tender, in all quadrants, 22:05 Back: pain, is absent, ROM is normal, 22:05 Neuro: Orientation: is normal, Mentation: is normal, Cerebellar function: is grossly normal, Motor: moves all fours, strength is normal, Sensation: no obvious gross deficits, 22:25 ECG was reviewed by the Attending Physician. Vital Signs: 21:24 BP 133 / 87; Pulse 72; Resp 16; Temp 98.2; Pulse Ox 100% ; Weight 67.13 kg; Height 5 dd2 ft. 5 in. ; Pain 7/10; 22:50 BP 127 / 109; Pulse 80; Resp 18; Pulse Ox 99% on R/A; kj2 23:37 BP 118 / 66; Pulse 87; Resp 18; Pulse Ox 100% ; kj2 06/01 00:51 BP 122 / 72; Pulse 83; Resp 18; Pulse Ox 98% on R/A; tb4 02:15 BP 109 / 69; Pulse 73; Resp 18; Pulse Ox 99% on R/A; tb4 05/31 21:24 Body Mass Index 24.63 (67.13 kg, 165.1 cm) dd2 05/31 21:24 Pain Scale: Adult dd2 MDM: 05/31 21:22 Medical Screening Exam initiated cp 06/01 01:48 Data reviewed: vital signs, nurses notes, lab test result(s), EKG, radiologic studies, cp CT scan, plain films, and as a result, I will discharge patient. 01:48 I considered the following discharge prescriptions or medication management in the emergency department Medications were administered in the Emergency Department. See MAR. Independent interpretation of the following test(s) in the Emergency Department EKG: See my EKG interpretation above X-Ray: My interpretation is chest xray negative for infiltrates. Counseling: I had a detailed discussion with the patient and/or guardian regarding the historical points, exam findings, and any diagnostic results supporting the discharge/admit diagnosis, lab results, radiology results, to return to the emergency department if symptoms worsen or persist or if there are any questions or concerns that arise at home. Response to treatment: the patient's symptoms have markedly improved after treatment, and as a result, I will discharge patient. Special discussion: Based on the patient's history, exam, and Dx evaluation, there is no indication for emergent intervention or inpatient Tx. It is understood by the patient/guardian that if the Sx's persist or worsen they need to return immediately for re-evaluation. 05/31 21:47 Order name: Basic Metabolic Panel; Complete Time: : cp 06/01 01:22 Interpretation: Normal except: K 3.4. cp 05/31 21:47 Order name: CBC with Diff; Complete Time: 23:03 cp 05/31 21:47 Order name: D-Dimer; Complete Time: : cp 05/31 21:47 Order name: LFT's; Complete Time: : cp 06/01 01:22 Interpretation: Normal except: AST 12; ALK 43; IBILI, CALC 0.0. cp 05/31 21:47 Order name: Magnesium; Complete Time: : cp 05/31 21:47 Order name: NT PRO-BNP; Complete Time: : cp 05/31 21:47 Order name: PT-INR; Complete Time: : cp 05/31 21:47 Order name: Troponin HS; Complete Time: : cp 05/31 21:47 Order name: Test, Urine; Complete Time: 23: cp 05/31 21:47 Order name: UDS; Complete Time: 23: cp 05/31 21:47 Order name: UA Rfx Honorio Cult if indicated; Complete Time: 23:03 cp 06/01 01:23 Interpretation: Normal except: UCLA Turbid; Urine SG < 1.005; UBLD Trace. cp 05/31 21:47 Order name: XRAY Chest (1 view); Complete Time: 23:03 cp 05/31 23:23 Order name: CT Head Brain wo Cont cp 05/31 23:23 Order name: CT Chest For PE Angio cp 05/31 21:47 Order name: EKG; Complete Time: 21:48 cp 05/31 21:47 Order name: Cardiac monitoring; Complete Time: 22:21 cp 05/31 21:47 Order name: EKG - Nurse/Tech; Complete Time: 22:21 cp 05/31 21:47 Order name: IV Saline Lock; Complete Time: 22:21 cp 05/31 21:47 Order name: Labs collected and sent; Complete Time: 22:21 cp 05/31 21:47 Order name: O2 Per Protocol; Complete Time: 22:21 cp 05/31 21:47 Order name: O2 Sat Monitoring; Complete Time: 22:21 cp 05/31 22:29 Order name: Misc. Order: recollect light green top and blue top / labels at main vk printer; Complete Time: 23:13 EC/03 22:25 Rate is 77 beats/min. Rhythm is regular. IL interval is normal. QRS interval is normal. cp QT interval is normal. T waves are Inverted in lead aVR. Interpreted by me. Reviewed by me. Administered Medications: 22:15 Drug: Ondansetron IVP 4 mg IVP once; over 2 minutes Route: IVP; Site: left antecubital; kj2 23:48 Follow up: Response: No adverse reaction kj2 22:15 Drug: NS 0.9% IV 1000 ml IV at 1000 ml once; to be given as a bolus over 90 minutes kj2 Route: IV; Rate: 1000 ml; Site: left antecubital; 23:49 Follow up: IV Status: Completed infusion; IV Intake: 1000ml kj2 23:23 Drug: Ketorolac IVP 15 mg IVP once Route: IVP; Site: left antecubital; kj2 23:49 Follow up: Response: No adverse reaction kj2 23:23 Drug: Ativan IVP 0.5 mg IVP once Route: IVP; Site: left antecubital; kj2 23:49 Follow up: Response: No adverse reaction kj2 Disposition Summary: 06/01/25 01:48 Discharge Ordered Notes: Location: Home cp Problem: new cp Symptoms: have improved cp Condition: Stable cp Diagnosis - Chest pain, unspecified cp - Nausea cp - Paresthesia of skin cp Followup: cp - With: Private Physician - When: 2 - 3 days - Reason: symptoms continue Discharge Instructions: - Discharge Summary Sheet cp - Nonspecific Chest Pain, Adult cp - Nausea, Adult cp - Paresthesia cp - Aspirin and Your Heart cp Forms: - Medication Reconciliation Form cp - Antibiotic Education cp - Prescription Opioid Use cp - Patient Portal Instructions cp - Leadership Thank You Letter cp Prescriptions: - Ibuprofen 800 mg Oral Tablet - take 1 tablet ORAL route every 8 hours As needed take with food; 30 tablet; cp Refills: 0, Product Selection Permitted - Zofran 4 mg Oral Tablet - take 1 tablet ORAL route every 12 hours As needed; 20 tablet; Refills: 0, cp Product Selection Permitted Addendum: 06/04/2025 09:06 Co-signature as Attending Physician, Aurelio HANDLEY reviewed the patient's care t t7 provided by the Advanced Practice Provider and agree with the diagnosis and treatment plan. Signatures: Dispatcher [employer] EDAK Elkin Wise, ALEXIS PATariqC Audelia Tovar Krystal, RN RN kj2 GELA GONSALEZ RN RN dd2 Aurelio Crawley DO DO tt7
[2025-06-01 03:18] VITALS: TEMP 98.2
[2025-06-01 03:25] VITALS: O2SAT 99
[2025-06-01 03:30] VITALS: BP 109/69
== END 2025-06-01 02:36 | disposition home or self-care (01) ==
LOC: ER 21:11
DX: R07.89 Other chest pain (principal); R11.0 Nausea; R20.2 Paresthesia of skin
CPT/HCPCS: 36415; 70450; 71045; 71275; 80048; 80076; 80307; 81001; 81025; 83735; 83880; 84484; 85025; 85379; 85610; 93005; 96361; 96374; 96375; 99285; J1885; J2405; J7030; Q9967